=== PATIENT | male | born 1940 | race Caucasian/White ===

== ENCOUNTER 2020-06-24 12:09 | Day surgery (SDC) | payer OTHER ==
[2020-06-22 11:35] LABS: Absolute Lymphocytes (CBC) 1.7 K/uL (0.7-4.9); Basophils % 0.4 % (0-1.3); Lymphocytes % 24.4 % (15.3-44.8); MPV 7.2 fL (7.6-11.3); RBC Red Blood Cell Count 4.04 M/uL (4.33-5.43)
--- NOTE | 2020-06-22 11:40 | EKG ---
Test Date: 2020-06-22 Test Time: 09:42:01 Automotive Professional: TG MEASUREMENT RESULTS: Intervals: Rate: 64 AR: 184 QRSD: 132 QT: 418 QTc: 431 [place]: P: 25 AR: 184 QRS: 62 T: 66 INTERPRETIVE STATEMENTS: Sinus rhythm with occasional premature ventricular complexes and premature atrial complexes Indeterminate axis Right bundle branch block Abnormal ECG Compared to ECG 03/14/2017 14:58:14 Atrial premature complex(es) now present Ventricular premature complex(es) now present Indeterminate axis now present Sinus bradycardia no longer present Electronically Signed On 06-22-20 11:39:20 CDT by Simone Junior
--- NOTE | 2020-06-22 11:40 | RAD REPORT ---
EXAM DESCRIPTION: RAD - Chest Pa And Lat (2 Views) - 06/22/2020 11:08 am CLINICAL HISTORY: preop, pending heart catheterization COMPARISON: July 2015 TECHNIQUE: Frontal and lateral views of the chest were obtained. FINDINGS: The lungs are fibrotic with no peripheral mass consolidation. Diaphragm is flattened with increased retrosternal space. Heart size is normal and central vasculature is within normal limits. No pleural effusion or pneumothorax seen. No acute bony finding noted. No aortic abnormality. IMPRESSION: Prominent COPD changes are present not substantially different from 2016. No acute finding.
[2020-06-22 11:45] LABS: Protime INR 1.03
[2020-06-22 11:57] LABS: Potassium 4.2 mmol/L (3.5-5.1)
[2020-06-24] MEDS ORDERED: NA CHLORIDE 0.9% 500 ML ONE (12:34)
[2020-06-24] MEDS ORDERED: HEPA 1000U/500MLS 0 UNIT/0 ML BAG IV ONE (13:25)
[2020-06-24] MEDS ORDERED: HEPARIN 5000 UNIT/ML 1 ML VIAL ONE (13:25)
[2020-06-24] MEDS ORDERED: VERAPAMIL HCL 10 MG/4 ML VIAL IV ONE (13:26)
[2020-06-24] MEDS ORDERED: HEPARIN 10,000 UNIT/10 ML VIAL IV ONE (13:26)
[2020-06-24] MEDS ORDERED: FENTANYL CITR 100 MCG/2 ML ONE (13:26)
[2020-06-24] MEDS ORDERED: ATROPINE SULF 1 MG/10 ML SYR IV ONE (13:26)
[2020-06-24] MEDS ORDERED: MIDAZOLAM HCL 2 MG/2 ML INJ ONE (13:26)
[2020-06-24 15:03] VITALS: O2SAT 100
[2020-06-24 16:04] VITALS: BP 113/65
--- NOTE | 2020-06-24 22:58 | OP ---
Date of Procedure: 06/24/2020 Surgeon: JOCELYNE LANE Procedure Performed: Selective coronary angiogram. Indication: Chest pain with abnormal stress test. Access: Right radial artery 6-Micronesian closed with TR band. Complications: None. Bleeding: Less than 10 mL. Description Of Procedure: After risks, benefits, and alternatives were explained, the patient agreed to procedure and signed informed consent. The patient was brought into cardiac catheterization [facility], prepped and draped in usual sterile fashion. Then, we accessed radial artery using pediatric micropuncture kit and placed a 6-Micronesian slender sheath and took 5-Micronesian [place] 4.0 catheter into the aortic root, engaged left main and right coronary artery, took standard views and then removed the c atheter and sheath, and placed TR band with good hemostasis. Findings: 1.Left main, large and normal. 2.LAD, moderate size with mild luminal irregularity and mid segment myocardial bridge. 3.Left circumflex, large and normal. 4.RCA, dominant vessel and normal. Conclusion: Normal coronary arteries. Recommendations: Medical management if quit smoking. SR/MODL Voice ID: [id number] Report ID: [id number]
== END 2020-06-24 16:10 | disposition home or self-care (01) ==
LOC: CCL 12:09
PROVIDERS: ATTEND Internal Medicine
DX: R07.9 Chest pain, unspecified (principal); R42 Dizziness and giddiness; E03.9 Hypothyroidism, unspecified; F17.210 Nicotine dependence, cigarettes, uncomplicated; Z20.822 Contact with and (suspected) exposure to COVID-19
CPT/HCPCS: 93005; 85025; 80048; 36415; 85610; 85730; 71046; 93454; U0003; C1893; J1644; J2250; J3010; J7040

== ENCOUNTER 2021-06-27 12:35 | Emergency (ER) | payer OTHER ==
--- OUTSIDE RECORDS SUMMARY | 2021-06-27 12:41 | XMS REPORT | Continuity of Care Document ---
:1940 Author Organization [facility] t Address [address] [place] [address] Care Team Providers Name Role Phone Geno-Angelao_A_AH Attending Clinician Unavailable Geno-Mbayo_A_AH Admitting Clinician Unavailable Payers Payer Name Policy Type Policy Number Effective Date Expiration Date S angelique [facility] - [id number] 2019 [employer] 00:00:00 (MEDICARE REPLACEMENT/ADVANT AGE - HMO) Problems Condition Condition Condition Status Onset Resolution Last Treating Co mments Source Name Details Category Date Date Treatment Clinician Date 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 Social History Smoking Status Start Date Stop Date Source Light Tobacco Smoker [facility] Medications Ordered Filled Start Stop Current Ordering Indication Dosage Frequency Signature Comments Components Source Medication Medication Date Date Medication? Clinician (SIG) Name Name bupropion bupropion No 1 BID bupropion [facility] HCl 150 mg HCl 150 mg HCl 150 mg Family tablet,12 tablet,12 tablet,12 Practic hr hr hr e sustained-r sustained-r sustained- elease(smok elease(smok release(sm ing ing oking deterrent) deterrent) deterrent) Take 1 Take 1 Take 1 tablet tablet tablet twice a day twice a day twice a by oral by oral day by route. route. oral route. levothyroxi levothyroxi No 1capsul Q1D levothyrox [facility] ne 25 mcg ne 25 mcg e(s) ine 25 mcg Family capsule capsule capsule Practi c Take 1 Take 1 Take 1 e capsule capsule capsule every day every day every day by oral by oral by oral route. route. route. tamsulosin tamsulosin No 1capsul Q1D tamsulosin [place] 0.4 mg 0.4 mg e(s) 0.4 mg Family capsule capsule capsule Practi c Take 1 Take 1 Take 1 e capsule capsule capsule every day every day every day by oral by oral by oral route. route. route. Procedures This patient has no known procedures. Encounters Start End Encounter Admission Attending Care Care Encounter Source Date/Time Date/Time Type Type Clinicians Facility Department ID 2020-01-20 2020-01-20 Outpatient Geno-Mbayo [facility] [address] [place] [address] 11:59:00 11:59:00 _A_AH [id number] Family Practic e 2020-01-16 2020-01-16 Outpatient Geno-Mbayo [facility] [address] [place] [address] 06:40:00 06:40:00 _A_AH [id number] Family Practic e 2020-01-06 2020-01-06 [place] [facility] [place] - [id number] [place] 00:00:00 00:00:00 Geno-Mbay [facility] elkin beltran CORPORATE HEALTH CONSULTANT: Medical - Practi c [email or web address] [facility], [address] [address], [place] [address] , Ph. 2019-07-31 2019-07-31 Outpatient Geno-Mbayo [facility] [address] [place] [address] 05:27:00 05:27:00 _A_AH [id number] Family Practic e 2019-07-29 2019-07-29 Outpatient Geno-Mbayo [facility] [address] [place] [address] 12:54:00 12:54:00 _A_AH [id number] Family Practic e 2019-07-04 2019-07-04 Outpatient Geno-Mbayo [facility] [address] [place] [address] 02:30:00 02:30:00 _A_AH [id number] Family Practic e 2019-06-29 2019-06-29 Outpatient Geno-Mbayo [facility] [address] [place] [address] 12:15:00 12:15:00 _A_AH [id number] Family Practic e 2019-06-04 2019-06-04 Outpatient Geno-Arline [facility] [phone] [facility] 09:38:00 09:38:00 _A_ [id number] Family Practic e 2019-05-26 2019-05-26 Lyn [facility] [place] - [id number] [place] 00:00:00 00:00:00 [facility] elkin beltran CORPORATE HEALTH CONSULTANT: Medical - Practi c [email or web address] [facility], [place] [address], [place] [address] , Ph. 2019-03-26 2019-03-26 Outpatient Geno-Arline [facility] [id number] [facility] 07:12:00 07:12:00 _A_AH [id number] Family Practic e Results This patient has no known results.
--- NOTE | 2021-06-27 14:05 | EDPHYS ---
Physician Documentation [facility] Name: Arben Young Age: 80 yrs Sex: Male : 1940 Arrival Date: 06/27/2021 Time: 12:36 Bed Waiting Private MD: IRAJ MARTIN ED Physician Srinath Torres HPI: 06/27 13:15 This 80 yrs old Male presents to ER via Ambulatory with complaints of Diarrhea, ms3 Decreased Appetite. 13:15 The patient presents to the emergency department with diarrhea, that is intermittent. ms3 Onset: The symptoms/episode began/occurred 5 day(s) ago. Possible causes: bad food exposure. The symptoms are aggravated by nothing. The symptoms are alleviated by nothing. Associated signs and symptoms: Pertinent positives: diarrhea. Severity of symptoms: At their worst the symptoms were mild moderate in the emergency department the symptoms have improved. The patient has experienced similar episodes in the past, Food poisoning . Historical: - Allergies: 13:18 No Known Allergies; jd3 - Home Meds: 13:18 thyroid (pork) oral [Active]; Flomax Oral [Active]; jd3 - Immunization history:: Adult Immunizations up to date, Client reports having NOT received the Covid vaccine. - Social history:: Smoking status: Patient reports the use of cigarette tobacco products, smokes one pack cigarettes per day. ROS: 13:15 Constitutional: Negative for fever, and chills. Eyes: Negative for injury, pain, ms3 redness, and discharge, Neck: Negative for injury, pain, and swelling, Cardiovascular: Negative for chest pain, and palpitations. Respiratory: Negative for shortness of breath, cough, wheezing, and pleuritic chest pain, MS/Extremity: Negative for injury and deformity, Skin: Negative for injury, rash, and discoloration. 13:15 Abdomen/GI: Positive for diarrhea, Negative for abdominal pain, nausea and vomiting. Exam: 13:15 Constitutional: This is a well developed, well nourished patient who is awake, alert, ms3 and in no acute distress. Eyes: Pupils equal round and reactive to light, extra-ocular motions intact. Lids and lashes normal. Conjunctiva and sclera are non-icteric and not injected. Periorbital areas with no swelling, redness, or edema. Neck: Trachea midline, no cervical lymphadenopathy. Supple, full range of motion without nuchal rigidity, or vertebral point tenderness. No Meningismus. Chest/axilla: Normal chest wall appearance and motion. Nontender with no deformity. Cardiovascular: Regular rate and rhythm with a normal S1 and S2. No gallops, murmurs, or rubs. Normal PMI, no JVD. No pulse deficits. Respiratory: Lungs have equal breath sounds bilaterally, clear to auscultation and percussion. No rales, rhonchi or wheezes noted. No increased work of breathing, no retractions or nasal flaring. Abdomen/GI: Soft, non-tender, with normal bowel sounds. No distension or tympany. No guarding or rebound. No evidence of tenderness throughout. Skin: Warm, dry with normal turgor. Normal color with no rashes, no lesions, and no evidence of cellulitis. MS/ Extremity: Pulses equal, no cyanosis. Neurovascular intact. Full, normal range of motion. Psych: Awake, alert, with orientation to person, place and time. Behavior, mood, and affect are within normal limits. Vital Signs: 13:36 BP 120 / 77; Pulse 74; Resp 17 S; Temp 97.8(TE); Pulse Ox 97% on R/A; Weight 58.97 kg; jd3 Height 6 ft. 1 in. (185.42 cm); Pain 0/10; 13:36 Body Mass Index 17.15 (58.97 kg, 185.42 cm) jd3 MDM: 13:15 Differential diagnosis: Nonspecific abd pain, gastritis, Diarrhea vs Dehydration. ms3 14:04 Patient medically screened. ms3 22:01 Data reviewed: vital signs, nurses notes. Counseling: I had a detailed discussion with ms3 the patient and/or guardian regarding: the historical points, exam findings, and any diagnostic results supporting the discharge/admit diagnosis, to return to the emergency department if symptoms worsen or persist or if there are any questions or concerns that arise at home. ED course: Patient stated he did not wish to continue his treatment in the ED as his insurance is out of network. Discussed return precautions with patient to include worsening symptoms, or any other concerns.. Administered Medications: No medications were administered Disposition Summary: 06/27/21 14:04 Discharge Ordered Location: Home ms3 Problem: new ms3 Symptoms: are unchanged ms3 Condition: Stable ms3 Diagnosis - Diarrhea, unspecified ms3 Followup: ms3 - With: IRAJ MARTIN - When: 2 - 3 days - Reason: Discharge Instructions: - Discharge Summary Sheet ms3 - Diarrhea, Adult ms3 Forms: - Medication Reconciliation Form ms3 - Thank You Letter ms3 - Antibiotic Education ms3 - Prescription Opioid Use ms3 Signatures: Dispatcher [employer] Ward Webber RN RN Srinath Coker DO DO ms3 Corrections: (The following items were deleted from the chart) 13:04 13:03 Allergies: tetrabenazine; jd3 jd3 13:05 13:02 Social history: Smoking status: Patient/guardian denies using tobacco, but has a jd3 distant history of tobacco abuse, jd3 13:05 13:02 Immunization history: Adult Immunizations up to date, Client reports receiving jd3 the 2nd dose of the Covid vaccine, Flu vaccine is up to date. jd3 13:05 13:03 Allergies: Tetracyclines; jd3 jd3 13:05 13:03 PMHx: COPD; jd3 jd3 13:05 13:03 PMHx: Asthma; jd3 jd3 13:05 13:03 PSHx: tubal; jd3 jd3 13:05 13:03 PSHx: Tonsillectomy; jd3 jd3
--- NOTE | 2021-06-27 14:05 | ER ---
Nurse's Notes [facility] Name: Arben Young Age: 80 yrs Sex: Male : 1940 Arrival Date: 06/27/2021 Time: 12:36 Bed Waiting Private MD: IRAJ MARTIN Diagnosis: Diarrhea, unspecified Presentation: 06/27 13:17 Chief complaint: Spouse and/or significant other states: "he has been having non stop jd3 diarrhea since Sunday. we think he has food poisoning.". Coronavirus screen: At this time, the client does not indicate any symptoms associated with coronavirus-19. Ebola Screen: No symptoms or risks identified at this time. Initial Sepsis Screen: Does the patient meet any 2 criteria? No. Patient's initial sepsis screen is negative. Does the patient have a suspected source of infection? No. Patient's initial sepsis screen is negative. Risk Assessment: Do you want to hurt yourself or someone else? Patient reports no desire to harm self or others. Onset of symptoms was June 29, 2021. 13:17 Method Of Arrival: Ambulatory jd3 13:17 Acuity: CHAS 3 jd3 Triage Assessment: 14:09 General: Appears in no apparent distress. Behavior is calm, cooperative, appropriate jd3 for age. Pain: Denies pain. GI: Reports diarrhea. Historical: - Allergies: 13:18 No Known Allergies; jd3 - Home Meds: 13:18 thyroid (pork) oral [Active]; Flomax Oral [Active]; jd3 - Immunization history:: Adult Immunizations up to date, Client reports having NOT received the Covid vaccine. - Social history:: Smoking status: Patient reports the use of cigarette tobacco products, smokes one pack cigarettes per day. Screenin:09 Abuse screen: Denies threats or abuse. Nutritional screening: No deficits noted. jd3 Tuberculosis screening: No symptoms or risk factors identified. Fall Risk None identified. Assessment: 14:08 Reassessment: pt reporting to going to be going to [place] where his insurance is jd3 accepted. pt discharged from [facility]. even and steady gait. Vital Signs: 13:36 BP 120 / 77; Pulse 74; Resp 17 S; Temp 97.8(TE); Pulse Ox 97% on R/A; Weight 58.97 kg; jd3 Height 6 ft. 1 in. (185.42 cm); Pain 0/10; 13:36 Body Mass Index 17.15 (58.97 kg, 185.42 cm) jd3 ED Course: 12:36 Patient arrived in ED. am2 12:36 IRAJ MARTIN is Private Physician. am2 12:55 Srinath Torres DO is Attending Physician. ms3 13:02 Triage completed. jd3 13:37 Arm band placed on. jd3 14:04 IRAJ MARTIN is Referral Physician. ms3 14:08 Ward Schmidt RN is Primary Nurse. jd3 14:10 Patient has correct armband on for positive identification. Bed in low position. Call j light in reach. Adult w/ patient. Pulse ox on. NIBP on. 14:10 No provider procedures requiring assistance completed. Patient did not have IV access jd3 during this emergency room visit. Administered Medications: No medications were administered Medication: 14:09 VIS not applicable for this client. jd3 Outcome: 14:04 Discharge ordered by . ms3 14:09 Discharged to home ambulatory. jd3 14:09 Condition: stable 14:09 Discharge instructions given to patient, family, Instructed on discharge instructions, follow up and referral plans. Demonstrated understanding of instructions, follow-up care. 14:10 Patient left the ED. jd3 Signatures: Catherine Morejon am2 Ward Schmidt RN RN j Srinath Torres DO DO ms3 Corrections: (The following items were deleted from the chart) 13:04 13:03 Allergies: tetrabenazine; jd3 jd3 13:05 13:01 Chief complaint: Patient states: "I am having shortness of breath and not paying jd3 attention to my medications and I have been out of my inhaler." jd3 13:05 13:01 Coronavirus screen: At this time, the client does not indicate any symptoms jd3 associated with coronavirus-19. jd3 13:05 13:01 Ebola Screen: No symptoms or risks identified at this time. jd3 jd3 13:05 13:01 Initial Sepsis Screen: Does the patient meet any 2 criteria? No. Patient's jd3 initial sepsis screen is negative. Does the patient have a suspected source of infection? No. Patient's initial sepsis screen is negative. jd3 13:05 13:01 Risk Assessment: Do you want to hurt yourself or someone else? Patient reports no [facility] desire to harm self or others. [facility] 13:01 Onset of symptoms was June 27, 2021 [place] [address] 13:01 Method Of Arrival: Ambulatory [place] [address] 13:01 Acuity: CHAS 3 [place] [address] 13:02 Social history: Smoking status: Patient/guardian denies using tobacco, but has a [facility] distant history of tobacco abuse, [facility] 13:02 Immunization history: Adult Immunizations up to date, Client reports receiving [facility] the 2nd dose of the Covid vaccine, Flu vaccine is up to date. [facility] 13:03 Allergies: Tetracyclines; [place] [address] 13:03 PMHx: COPD; [place] [address] 13:03 PMHx: Asthma; [place] [address] 13:03 PSHx: tubal; [place] [address] 13:03 PSHx: Tonsillectomy; [place] [address] 13:06 13:04 Pulse 70bpm; Resp 17bpm; Spontaneous; Pulse Ox 97% RA; Temp 98.4F Temporal; jd3 122.47 kg Reported; Height 5 ft. 7 in. Reported; BMI: 42.2; Pain 8/10; [facility] 13 13:04 Arm band placed on [place] [address]
[2021-06-27 14:20] VITALS: BP 120/77; TEMP 97.8; O2SAT 97
== END 2021-06-27 14:10 | disposition home or self-care (01) ==
LOC: ER 12:35
DX: R19.7 Diarrhea, unspecified (principal); F17.210 Nicotine dependence, cigarettes, uncomplicated
CPT/HCPCS: 99283

== ENCOUNTER 2021-07-04 09:18 | Emergency (ER) | payer OTHER ==
--- OUTSIDE RECORDS SUMMARY | 2021-07-04 09:21 | XMS REPORT | Continuity of Care Document ---
:1940 Author Organization [facility] t Address [address] [place] [address] Care Team Providers Name Role Phone QUINN MARTIN Primary Care Physician Unavailable Bre MORGAN Attending Clinician Unavailable Bre Verduzco Attending Clinician Geno-Mbayo_A_AH Attending Clinician Unavailable Geno-Mbayo_A_AH Admitting Clinician Unavailable Payers Payer Name Policy Type Policy Number Effective Date Expiration Date Bre ZAVALETA [employer] [id number] 2021 MEDICARE HMO DSNP 00:00:00 [employer] [place] - [id number] 2019 [place] 00:00:00 (MEDICARE REPLACEMENT/ADVANT AGE - HMO) Problems Condition Condition Condition Status Onset Resolution Last Treating Co mments Source Name Details Category Date Date Treatment Clinician Date 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, Episodes, 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 2018-02 [facility] dism dism 03-01 Family 00:00: Practic 00 e 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 [place]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 hyperplasi Hyperplasi 00:00: Pr actic a a 00 e No known No known Disease Unive rs active active ity of problems problems [facility] Allergies, Adverse Reactions, Alerts Allergy Allergy Status Severity Reaction(s) Onset Inactive Treating Comm ents Source Name Type Date Date Clinician NO KNOWN Drug Active Univers ALLERGIE Class ity of S [facility] Social History Social Habit Start Date Stop Date Quantity Comments Source Exposure to 2021-06-19 2021-06-29 Not sure [facility] SARS-CoV-2 (event) 00:00:00 10:43:00 Medica l Branch Sex Ass[birth year] At [birth year] [facility] 00:00:00 00:00:00 Medical Branch Smoking Status Start Date Stop Date Source Light Tobacco Smoker [facility] Unknown if ever smoked [facility] Medications Ordered Filled Start Stop Current Ordering Indication Dosage Frequency Signature Comments Components Source Medication Medication Date Date Medication? Clinician (SIG) Name Name NaCl 0.9% No 1000mL at 999 Uni vers (NS) bolus -25 05-25 mL/hr, ity of infusion 17:15: 19:04 1,000 mL, Tacho as 1,000 mL 00 :00 IV Medical Infusion, Branch ONCE, 1 dose, On Sun06/29/21 at 1215, STAT No known No Univers medications -25 ity of 11:04: [place] 30 [facility] bupropion bupropion No 1 BID bupropion [facility] HCl 150 mg HCl 150 mg HCl 150 mg Family tablet,12 tablet,12 tablet,12 Practic hr hr hr e sustained-r sustained-r sustained- elease(smok elease(smok release(sm ing ing oking deterrent) deterrent) deterrent) Take 1 Take 1 Take 1 tablet tablet tablet twice a day twice a day twice a by oral by oral day by route. route. oral route. levothyroxi levothyroxi No 1capsul Q1D levothyrox [facility] ne 25 mcg ne 25 mcg e(s) ine 25 mcg Family capsule capsule capsule Practi c Take 1 Take 1 Take 1 e capsule capsule capsule every day every day every day by oral by oral by oral route. route. route. tamsulosin tamsulosin No 1capsul Q1D tamsulosin [facility] 0.4 mg 0.4 mg e(s) 0.4 mg Family capsule capsule capsule Practi c Take 1 Take 1 Take 1 e capsule capsule capsule every day every day every day by oral by oral by oral route. route. route. Vital Signs Vital Name Observation Time Observation Value Comments Source Systolic blood 2021-06-29 19:35:07 102 mm[Hg] Univer sity of pressure [facility] Diastolic blood 2021-06-29 19:35:07 66 mm[Hg] Unive rsity of pressure [facility] Heart rate 2021-06-29 19:35:07 84 /min [facility] Respiratory rate 2021-06-29 19:35:07 16 /min [facility] Oxygen saturation in 2021-06-29 19:35:07 98 /min [facility] Arterial blood by [facility] Pulse oximetry [place] Body temperature 2021-06-29 15:14:00 35.56 Natali [facility] Body height 2021-06-29 15:12:00 182.9 cm [facility] Body weight 2021-06-29 15:12:00 58.968 kg [facility] BMI 2021-06-29 15:12:00 17.63 kg/m2 [facility] Procedures Procedure Date / Time Performed Performing Clinician Perry e COMP. METABOLIC PANEL 2021-06-29 15:31:00 Valery Morgan [facility] ([id number]) [facility] CBC WITH DIFF 2021-06-29 15:31:00 Valery Morgan Maxwell o f [facility] NOTICE OF PRIVACY 2021-06-29 14:49:44 Doctor Unassigned, No [facility] PRACTICES Name [facility] Encounters Start End Encounter Admission Attending Care Care Encounter Source Date/Time Date/Time Type Type Clinicians Facility Department ID 2021-06-29 2021-06-29 Emergency X DIANA MORGAN ERT [id number] Univers 10:21:00 14:42:00 VALERY campoverde [facility] 2021-06-29 2021-06-29 Emergency DIANA Morgan [id number] Univers 10:21:00 14:42:00 Valery CORADO [id number] i ty [facility] [id number] [facility] [id number] [facility] 084 Branch 2020-01-20 2020-01-20 Outpatient Geno-Mbayo VFP VFP [id number] [facility] 11:59:00 11:59:00 _A_AH [id number] Family Practic e 2020-01-16 2020-01-16 Outpatient Geno-Mbayo VFP VFP [id number] [facility] 06:40:00 06:40:00 _A_AH 21101 Family Practic e 2020-01-06 2020-01-06 Lyn VFP [place] - [id number] [place] 00:00:00 00:00:00 Alex [facility] elkin beltran, FRAME STRIPPER: Medical - Practi c [email or web address] [address], [place] [address] , Ph. 2019-07-31 2019-07-31 Outpatient Geno-Mbayo VFP VFP [id number] [facility] 05:27:00 05:27:00 _A_AH 30550 Family Practic e 2019-07-29 2019-07-29 Outpatient Geno-Mbayo VFP VFP [id number] [facility] 12:54:00 12:54:00 _A_AH 79020 Family Practic e 2019-07-04 2019-07-04 Outpatient Geno-Mbayo VFP VFP [id number] [facility] 02:30:00 02:30:00 _A_AH 32701 Family Practic e 2019-06-29 2019-06-29 Outpatient Geno-Mbayo VFP VFP [id number] [facility] 12:15:00 12:15:00 _A_AH 51995 Family Practic e 2019-06-04 2019-06-04 Outpatient Geno-Mbayo VFP VFP [id number] [facility] 09:38:00 09:38:00 _A_AH 63143 Family Practic e 2019-05-26 2019-05-26 Lyn VFP [place] - [id number] [place] 00:00:00 00:00:00 Alex [facility] elkin ruby, FRAME STRIPPER: Medical - Practi c [email or web address] [address], [place] [address] , Ph. 2019-03-26 2019-03-26 Outpatient Geno-Mbayo VFP VFP [id number] [facility] 07:12:00 07:12:00 _A_AH 03578 Family Practic e Results Test Description Test Time Test Comments Results Result Comments Source COMP. METABOLIC PANEL (59044) 2021-06-29 16:15:23 Test Item Value Reference Range Interpretation Comme nts NA (test code = 3278922009) 137 mmol/L 135-145 K (test code = 3745998067) 4.6 mmol/L 3.5-5.0 CL (test code = 5927632081) 101 mmol/L 98-108 CO2 TOTAL (test code = 25 mmol/L 23-31 8493472575) AGAP (test code = 2720047953) 2-16 BUN (test code = 1018079074) 22 mg/dL 7-23 GLUCOSE (test code = 0651296984) 107 mg/dL 70-110 CREATININE (test code = 0.89 mg/dL 0.60-1.25 3018492537) TOTAL BILI (test code = 0.5 mg/dL 0.1-1.0 5402967781) CALCIUM (test code = 7107167416) 10.4 mg/dL 8.6-10.6 T PROTEIN (test code = 7.5 g/dL 6.3-8.2 3475126550) ALBUMIN (test code = 0103059677) 4.5 g/dL 3.5-5.0 ALK PHOS (test code = 5102411171) 71 U/L 34-122 ALTv (test code = 1742-6) 20 U/L 5-50 AST(SGOT) (test code = 34 U/L 13-40 5880461707) eGFR (test code = 9734197852) mL/min/1.73m2 DENISE (test code = DENISE) Association of Glomerular Filtration Rate (GFR) and Staging of Kidney Disease* + +--------- + ----+| GFR (mL/min/1.73 m2) ?| With Kidney Damage ?| ?Without Kidney Damage+ +--- + +| ?>90 ?| ?Stage one ?| ? Normal ?+ +-------- + -----+| ?60-89 ?| ?Stage two ?| ? Decreased GFR ? + +--------- + ----+| ?30-59 ?| ?Stage three ?| ? Stage three ? + +--------- + ----+| ?15-29 ?| ?Stage four ? | ? Stage four ?+ +-------- + -----+| ?<15 (or dialysis) ? ?| ?Stage five ? | ? Stage five ?+ +-------- + -----+ *Each stage assumes the associated GFR level has been in effect for at least three months. ?Stages 1 to 5, with or without kidney disease, indicate chronic kidney disease. Notes: Determination of stages one and two (with eGFR >59mL/min/1.73 m2) requires estimation of kidney damage for at least three months as defined by structural or functional abnormalities of the kidney, manifested by either:Pathological abnormalities or Markers of kidney damage (including abnormalities in the composition of the blood or urine or abnormalities in imaging tests). [facility] WITH [id number] 16:02:18 Test Item Value Reference Range Interpretation Comments WBC (test code = See_Comment H [Automated 5390-2) message] The system which generated this result transmit precious reference range : 4.20 - 10.70 10*3/?L. The reference range was not used to interpret this result as normal/abnormal . RBC (test code = See_Comment [Automated 789-8) message] The system which generated this result transmit precious reference range : 4.26 - 5.52 10*6/?L. The reference range was not used to interpret this result as normal/abnormal . HGB (test code = 15.0 g/dL 12.2-16.4 718-7) HCT (test code = 43.1 % 38.4-49.3 4544-3) MCV (test code = 95.8 fL 81.7-95.6 H 787-2) MCH (test code = 33.3 pg 26.1-32.7 H 785-6) MCHC (test code = 34.8 g/dL 31.2-35.0 786-4) RDW-SD (test code = 50.6 fL 38.5-51.6 52111-2) RDW-CV (test code = 14.5 % 12.1-15.4 788-0) PLT (test code = See_Comment [Automated 777-3) message] The system which generated this result transmit precious reference range : 150 - 328 10*3/ ?L. The reference range was not u sed to interpret th is result as normal/abnormal . MPV (test code = 9.3 fL 9.8-13.0 L 82122-3) NRBC/100 WBC (test See_Comment [Automat ed code = 7596239082) message] The system which generated this result transmit precious reference range : 0.0 - 10.0 /100 WBCs. The reference range was not used to interpret this result as normal/abnormal . NRBC x10^3 (test code <0.01 See_Comment [Auto mated = 0825616140) message] The system which generated this result transmit precious reference range : 10*3/?L. The reference range was not used to interpret this result as normal/abnormal . GRAN MAT (NEUT) % 82.5 % (test code = 770-8) IMM GRAN % (test code 0.90 % = 0593298519) LYMPH % (test code = 9.0 % 736-9) MONO % (test code = 7.1 % 5905-5) EOS % (test code = 0.1 % 713-8) BASO % (test code = 0.4 % 706-2) GRAN MAT x10^3(ANC) 10.32 10*3/uL 1.99-6.95 H (test code = 8436240093) IMM GRAN x10^3 (test 0.11 10*3/uL 0.00-0.06 H code = 9171329142) LYMPH x10^3 (test code 1.12 10*3/uL 1.09-3.23 = 731-0) MONO x10^3 (test code 0.89 10*3/uL 0.36-1.02 = 742-7) EOS x10^3 (test code = <0.03 0.06-0.53 L 711-2) BASO x10^3 (test code 0.05 10*3/uL 0.01-0.09 = 704-7) Lab Interpretation Abnormal (test code = 49792-9) [facility]"
[2021-07-04 10:07] LABS: Absolute Lymphocytes (CBC) 1.6 K/uL (0.7-4.9); Hematocrit 46.1 % (39.6-49.0); MPV 7.7 fL (7.6-11.3); RBC Red Blood Cell Count 4.72 M/uL (4.33-5.43)
[2021-07-04] MEDS ORDERED: NA CHLORIDE 0.9% 1,000 ML ONE (10:07)
[2021-07-04 10:09] LABS: Protime INR 1.03
[2021-07-04 10:27] LABS: Albumin 3.7 g/dL (3.4-5.0); Bilirubin Direct 0.2 mg/dL (0-0.2); Bilirubin Total 0.5 mg/dL (0.2-1.0); Potassium 3.1 mmol/L (3.5-5.1); Protein, Total 7.6 g/dL (6.4-8.2); Troponin High Sensitivity 10.4 pg/mL (<58.9)
--- NOTE | 2021-07-04 11:10 | RAD REPORT ---
EXAM DESCRIPTION: Jason Single View07/04/2021 10:28 am CLINICAL HISTORY: Abdominal pain COMPARISON: 2020 FINDINGS: Lungs are hyperaerated. The lungs appear clear of acute infiltrate. The heart is normal size IMPRESSION: No acute abnormalities displayed
--- NOTE | 2021-07-04 11:10 | RAD REPORT ---
EXAM DESCRIPTION: CT - Abdomen Pelvis W Contrast - 07/04/2021 10:48 am CLINICAL HISTORY: Abdominal pain/diarrhea COMPARISON: 2013 TECHNIQUE: Computed axial tomography of the abdomen pelvis was obtained. 100 cc Isovue-300 was admin istered intravenously. Oral contrast was not requested which limits evaluation of bowel and appendix All CT scans are performed using dose optimization technique as appropriate and may include automated exposure control or mA/KV adjustment according to patient size. FINDINGS: The liver, spleen, pancreas, left adrenal and kidneys appear unremarkable. Small right adrenal adenoma There is no evidence of diverticulitis. Fluid within nondilated large and small bowel Mild gallbladder distention Spondylosis lumbar spine IMPRESSION: Fluid within nondilated large and small bowel may indicate an enteritis Mild gallbladder distention
[2021-07-04] MEDS ORDERED: POTASSIUM 25 MEQ EFFERV TAB ONE (13:34)
[2021-07-04] MEDS ORDERED: metroNIDAZOLE 500 MG TABLET ONE (13:34)
--- NOTE | 2021-07-04 15:59 | ER ---
Nurse's Notes [facility] Name: Arben Young Age: 80 yrs Sex: Male : 1940 Arrival Date: 07/04/2021 Time: 09:21 Bed 20 Private MD: IRAJ MARTIN Diagnosis: Diarrhea, unspecified;Hypokalemia Presentation: 07/04 09:24 Chief complaint: Patient states: that approx 12 days ago he had what he believed to be ap3 food poisoning. However, patient states he has had continued diarrhea since then, as well as a weight loss of approx 15lbs in the last 12 days. Patient states he has not had an appetite and has not been able to tolerate food or fluids. Patient denies pain at this time. Patient also reports having started Cipro, and this morning he had his 3 doses. Coronavirus screen: diarrhea, Client presents with at least one sign or symptom that may indicate coronavirus-19. Ebola Screen: No symptoms or risks identified at this time. Initial Sepsis Screen: Does the patient meet any 2 criteria? No. Patient's initial sepsis screen is negative. Does the patient have a suspected source of infection? No. Patient's initial sepsis screen is negative. Risk Assessment: Do you want to hurt yourself or someone else? Patient reports no desire to harm self or others. Onset of symptoms was June 22, 2021. 09:24 Method Of Arrival: Ambulatory ap3 09:24 Acuity: CHAS 3 ap3 Triage Assessment: 09:29 General: Appears in no apparent distress. Behavior is calm, cooperative, Reports ap3 fatigue for. Pain: Denies pain. Neuro: Level of Consciousness is awake, alert, obeys commands, Gait is steady, Reports weakness. Cardiovascular: Patient's skin is warm and dry. Respiratory: Airway is patent Respiratory effort is even, unlabored. GI: Reports diarrhea. Historical: - Allergies: 09:28 No Known Allergies; ap3 - PMHx: :28 None; ap3 - Immunization history:: Client reports having NOT received the Covid vaccine. Flu vaccine is not up to date. - Social history:: Smoking status: Patient reports the use of cigarette tobacco products, smokes one pack cigarettes per day. Screenin:30 Abuse screen: Denies threats or abuse. Nutritional screening: Had unintentional weight ap3 loss of 10 pounds or more. Tuberculosis screening: No symptoms or risk factors identified. 09:32 Fall Risk IV access (20 points). Total Rico Fall Scale indicates No Risk (0-24 pts). ll1 Assessment: 09:40 General: Appears uncomfortable, ill, Behavior is calm, cooperative, appropriate for ll1 age. Pain: Denies pain. Neuro: No deficits noted. Cardiovascular: No deficits noted. Respiratory: No deficits noted. GI: Abdomen is flat, Bowel sounds present X 4 quads. Abd is soft and non tender X 4 quads. Reports diarrhea, intolerance of fluids, intolerance of food. Musculoskeletal: Reports generalized weakness. 10:34 Reassessment: No changes from previously documented assessment. Patient and/or family ll1 updated on plan of care and expected duration. Pain level reassessed. Patient is alert, oriented x 3, equal unlabored respirations, skin warm/dry/pink. 11:30 Reassessment: No changes from previously documented assessment. Patient and/or family ll1 updated on plan of care and expected duration. Pain level reassessed. Patient is alert, oriented x 3, equal unlabored respirations, skin warm/dry/pink. 12:30 Reassessment: No changes from previously documented assessment. Patient and/or family ll1 updated on plan of care and expected duration. Pain level reassessed. Patient is alert, oriented x 3, equal unlabored respirations, skin warm/dry/pink. 13:30 Reassessment: No changes from previously documented assessment. Patient and/or family ll1 updated on plan of care and expected duration. Pain level reassessed. Patient is alert, oriented x 3, equal unlabored respirations, skin warm/dry/pink. 14:30 Reassessment: No changes from previously documented assessment. Patient and/or family ll1 updated on plan of care and expected duration. Pain level reassessed. Patient is alert, oriented x 3, equal unlabored respirations, skin warm/dry/pink. 15:30 Reassessment: No changes from previously documented assessment. Patient and/or family ll1 updated on plan of care and expected duration. Pain level reassessed. Patient is alert, oriented x 3, equal unlabored respirations, skin warm/dry/pink. 16:20 Reassessment: No changes from previously documented assessment. Patient and/or family ll1 updated on plan of care and expected duration. Pain level reassessed. Patient is alert, oriented x 3, equal unlabored respirations, skin warm/dry/pink. Vital Signs: 09:24 BP 119 / 77; Pulse 85; Resp 17; Temp 98.9(T); Pulse Ox 99% on R/A; Weight 51.26 kg; ap3 Height 6 ft. (182.88 cm); 09:40 BP 115 / 66 Supine; Pulse 64; ll1 09:42 BP 115 / 67 Sitting; Pulse 77; ll1 09:44 BP 97 / 75 Standing; Pulse 89; ll1 10:34 BP 124 / 66; Pulse 64; Resp 16; Pulse Ox 98% on R/A; ll1 14:32 BP 123 / 63; Pulse 65; Resp 16; Pulse Ox 99% ; ll1 16:15 BP 106 / 56; Pulse 55; Resp 17; Pulse Ox 98% on R/A; ll1 09:24 Body Mass Index 15.33 (51.26 kg, 182.88 cm) ap3 ED Course: 09:21 Patient arrived in ED. mr 09:22 IRAJ MARTIN is Private Physician. mr 09:24 Jitendra Adams [facility]. cp 09:24 Srinath Torres DO is Attending Physician. cp 09:28 Triage completed. ap3 09:31 Nurse Practitioner and/or Physician Traffic Coordinator to see patient. ap3 09:31 Arm band placed on left wrist. ap3 09:32 Terry Rome, CONNIE is Primary Nurse. ll1 09:32 Patient placed in an exam room, on a stretcher. ll1 09:32 Patient has correct armband on for positive identification. Bed in low position. Call ll1 light in reach. Side rails up X 1. Pulse ox on. NIBP on. 09:48 Missed attempt(s): 22 gauge in right forearm. Bleeding controlled, band aid applied, ll1 catheter tip intact. 09:50 Inserted saline lock: 22 gauge in right antecubital area, using aseptic technique. ll1 Blood collected. 10:30 XRAY Chest (1 view) In Process Unspecified. EDMS 10:48 CT Abd/Pelvis - IV Contrast Only In Process Unspecified. EDMS 14:35 Stool Culture Sent. ll1 14:35 Rotavirus Antigen Sent. ll1 14:35 Ova And Parasites Sent. ll1 14:35 Occult Blood Sent. ll1 14:35 CDIFF Sent. ll1 15:57 IRAJ MARTIN is Referral Physician. cp 15:57 Jc Valentin MD is Referral Physician. cp 15:58 Referral Physician role handed off by IRAJ MARTNI cp 15:58 Terrell Mirza MD is Referral Physician. cp 16:21 No provider procedures requiring assistance completed. IV discontinued, intact, ll1 bleeding controlled, No redness/swelling at site. Pressure dressing applied. Administered Medications: 10:14 Drug: NS 0.9% 1000 ml Route: IV; Rate: 1000 calculated rate; Site: right antecubital; ll1 16:42 Follow up: Response: No adverse reaction; IV Status: Completed infusion; IV Intake: ll1 700ml 13:34 Drug: Potassium Effervescent Tablet 50 mEq Route: PO; ll1 14:31 Follow up: Response: No adverse reaction ll1 13:34 Drug: Flagyl (metroNIDAZOLE) 500 mg Route: PO; ll1 14:32 Follow up: Response: No adverse reaction ll1 Medication: 09:31 VIS not applicable for this client. ap3 Intake: 16:42 IV: 700ml; Total: 700ml. ll1 Outcome: 15:58 Discharge ordered by . cp 16:23 Patient left the ED. ll1 16:23 Discharged to home via wheelchair. ll1 16:23 Condition: stable 16:23 Discharge instructions given to patient, Instructed on discharge instructions, follow up and referral plans. medication usage, Demonstrated understanding of instructions, follow-up care, medications, Prescriptions given X 3. Signatures: Dispatcher [employer] EDWV Denis Nicole mr Jitendra Adams PA PA cp Catherine Portillo RN RN ap3 Terry Rome RN RN ll1
--- NOTE | 2021-07-04 15:59 | EDPHYS ---
Physician Documentation [facility] Name: Arben Young Age: 80 yrs Sex: Male : 1940 Arrival Date: 07/04/2021 Time: 09:21 Bed 20 Private MD: IRAJ MARTIN ED Physician Srinath Torres HPI: 07/04 09:35 This 80 yrs old Male presents to ER via Ambulatory with complaints of cp Vomiting/Diarrhea, Weight Loss. 09:35 The patient presents to the emergency department with diarrhea, that is continuous. cp Onset: The symptoms/episode began/occurred 3 week(s) ago. 09:35 Possible causes: unknown. Associated signs and symptoms: Pertinent negatives: cp constipation, fever, GI bleeding, vomiting. Severity of symptoms: in the emergency department the symptoms are unchanged despite home interventions. Patient reports he is currently taking prescribed Cipro and weight loss of 20 plus pounds over past several weeks. Historical: - Allergies: 09:28 No Known Allergies; ap3 - PMHx: 09:28 None; ap3 - Immunization history:: Client reports having NOT received the Covid vaccine. Flu vaccine is not up to date. - Social history:: Smoking status: Patient reports the use of cigarette tobacco products, smokes one pack cigarettes per day. ROS: 09:40 Constitutional: Positive for poor PO intake, weight loss, Negative for body aches, cp chills, fever. 09:40 Abdomen/GI: Positive for abdominal pain, nausea, diarrhea, Negative for vomiting, cp constipation, black/tarry stool, rectal bleeding. 09:40 Eyes: Negative for injury, pain, redness, and discharge. cp 09:40 ENT: Negative for drainage from ear(s), ear pain, sore throat, difficulty swallowing, difficulty handling secretions. 09:40 Cardiovascular: Negative for chest pain, edema, palpitations. 09:40 Respiratory: Negative for cough, shortness of breath, wheezing. 09:40 Back: Negative for pain at rest, pain with movement. 09:40 : Negative for urinary symptoms, testicular pain 09:40 Skin: Negative for cellulitis, rash. 09:40 Neuro: Positive for weakness, Negative for altered mental status, dizziness, headache, syncope. 09:40 All other systems are negative. Exam: 09:45 Constitutional: The patient appears in no acute distress, alert, awake, cp non-diaphoretic, non-toxic, well developed, well nourished. 09:45 Head/Face: Normocephalic, atraumatic. cp 09:45 Eyes: Periorbital structures: appear normal, Pupils: equal, round, and reactive to light and accomodation, Extraocular movements: intact throughout, Conjunctiva: normal, no exudate, no injection, Sclera: no appreciated abnormality, Lids and lashes: appear normal, bilaterally. 09:45 ENT: External ear(s): are unremarkable, Nose: is normal, Mouth: Lips: moist, Oral mucosa: pink and intact, moist, Posterior pharynx: Airway: no evidence of obstruction, patent, Tonsils: are normal in appearance, swelling, is not appreciated, erythema, is not appreciated, exudate, is not appreciated. 09:45 Neck: ROM/movement: is normal, is supple, without pain, no range of motions limitations, no meningismus, no nuchal rigidity. 09:45 Chest/axilla: Inspection: normal, Palpation: is normal, no crepitus, no tenderness. 09:45 Cardiovascular: Rate: normal, Rhythm: regular, Edema: is not appreciated, JVD: is not appreciated. 09:45 Respiratory: the patient does not display signs of respiratory distress, Respirations: normal, no use of accessory muscles, no retractions, labored breathing, is not present, Breath sounds: are clear throughout, no decreased breath sounds, no stridor, no wheezing. 09:45 Abdomen/GI: Inspection: abdomen appears normal, Bowel sounds: active, all quadrants, Palpation: abdomen is soft and non-tender, in all quadrants, rebound tenderness, is not appreciated, voluntary guarding, is not appreciated, involuntary guarding, is not appreciated. 09:45 Back: pain, is absent, ROM is normal. 09:45 Skin: cellulitis, is not appreciated, no rash present. 09:45 Neuro: Orientation: to person, place \T\ time. Mentation: is normal, Motor: moves all fours, strength is normal, Sensation: is normal. 10:05 ECG was reviewed by the Attending Physician. cp Vital Signs: 09:24 BP 119 / 77; Pulse 85; Resp 17; Temp 98.9(T); Pulse Ox 99% on R/A; Weight 51.26 kg; ap3 Height 6 ft. (182.88 cm); 09:40 BP 115 / 66 Supine; Pulse 64; ll1 09:42 BP 115 / 67 Sitting; Pulse 77; ll1 09:44 BP 97 / 75 Standing; Pulse 89; ll1 10:34 BP 124 / 66; Pulse 64; Resp 16; Pulse Ox 98% on R/A; ll1 14:32 BP 123 / 63; Pulse 65; Resp 16; Pulse Ox 99% ; ll1 16:15 BP 106 / 56; Pulse 55; Resp 17; Pulse Ox 98% on R/A; ll1 09:24 Body Mass Index 15.33 (51.26 kg, 182.88 cm) ap3 MDM: 09:33 Patient medically screened. 13:45 Data reviewed: vital signs, nurses notes, lab test result(s), EKG, radiologic studies, cp CT scan, plain films. 13:45 Physician consultation: Jc Valentin MD was called at 13:35, was contacted at 13:35, regarding consult, patient's condition, and will see patient in office, to f/u for CT results showing mild gallbladder distension. wants Cipro stopped and patient to start oral Levaquin and metronidazole. 15:58 Test interpretation: by ED physician or midlevel provider: ECG, plain radiologic cp studies. 15:58 Differential diagnosis: gastritis, cholecystitis, pancreatitis, diverticulitis, viral cp gastroenteritis, gastroenteritis. Counseling: I had a detailed discussion with the patient and/or guardian regarding: the historical points, exam findings, and any diagnostic results supporting the discharge/admit diagnosis, lab results, the need for outpatient follow up, a family practitioner, a general surgeon, to return to the emergency department if symptoms worsen or persist or if there are any questions or concerns that arise at home. Response to treatment: the patient's symptoms have mildly improved after treatment, and as a result, I will discharge patient. ED course: VSS. Patient appears non-toxic and tolerating po fluids. Will discharge to home for continued monitoring. 07/04 09:52 Order name: Basic Metabolic Panel; Complete Time: 10:49 cp 07/04 10:49 Interpretation: Normal except: K 3.1; CO2 19; GFR 65. cp 07/04 09:52 Order name: CBC with Diff; Complete Time: 10:24 cp 05/30 10:25 Interpretation: Normal except: WBC 13.1; ALBER% 81.1; LYM% 12.0; NEUT A 10.6. cp 07/04 09:52 Order name: LFT's; Complete Time: 10:49 cp /30 10:49 Interpretation: Normal except: GLOB 3.9; A/G 0.9. cp 07/04 09:52 Order name: Magnesium; Complete Time: 10:49 cp 07/04 09:52 Order name: NT PRO-BNP; Complete Time: 10:49 cp 07/04 09:52 Order name: PT-INR; Complete Time: 10:24 cp 07/04 09:52 Order name: Troponin HS; Complete Time: 10:49 cp 07/04 09:52 Order name: Lactate; Complete Time: 10:49 cp 07/04 09:52 Order name: Lipase; Complete Time: 10:49 cp 07/04 09:52 Order name: Occult Blood; Complete Time: 15:14 cp 07/04 15:14 Interpretation: Reviewed. cp 07/04 09:52 Order name: Ova And Parasites cp 07/04 09:52 Order name: Rotavirus Antigen; Complete Time: 15:14 cp 07/04 15:14 Interpretation: Reviewed. cp 07/04 09:52 Order name: Stool Culture cp 07/04 09:33 Order name: Orthostatics; Complete Time: 09:54 cp 07/04 09:52 Order name: XRAY Chest (1 view); Complete Time: 11:19 cp 07/04 11:19 Interpretation: Report review. cp 07/04 09:52 Order name: EKG; Complete Time: 09:53 cp 07/04 09:52 Order name: Cardiac monitoring; Complete Time: 10:14 cp 07/04 09:52 Order name: EKG - Nurse/Tech; Complete Time: 10:14 cp 07/04 09:52 Order name: IV Saline Lock; Complete Time: 09:54 cp 07/04 09:52 Order name: Labs collected and sent; Complete Time: 09:54 cp 07/04 09:52 Order name: O2 Per Protocol; Complete Time: 09:54 cp 07/04 09:52 Order name: O2 Sat Monitoring; Complete Time: 09:54 cp 07/04 09:52 Order name: CT Abd/Pelvis - IV Contrast Only; Complete Time: 11:19 cp 07/04 13:19 Interpretation: Report reviewed. cp 07/04 09:52 Order name: CDIFF cp 07/04 11:21 Order name: NPO; Complete Time: 11:36 cp 07/04 13:45 Order name: PO challenge; Complete Time: 14:32 cp EC:05 Rate is 65 beats/min. Rhythm is regular. MO interval is normal. QRS interval is cp prolonged at 144 msec. QT interval is normal. T waves are Inverted in lead aVL. Interpreted by me. Reviewed by me. Administered Medications: 10:14 Drug: NS 0.9% 1000 ml Route: IV; Rate: 1000 calculated rate; Site: right antecubital; ll1 16:42 Follow up: Response: No adverse reaction; IV Status: Completed infusion; IV Intake: ll1 700ml 13:34 Drug: Potassium Effervescent Tablet 50 mEq Route: PO; ll1 14:31 Follow up: Response: No adverse reaction ll1 13:34 Drug: Flagyl (metroNIDAZOLE) 500 mg Route: PO; ll1 14:32 Follow up: Response: No adverse reaction ll1 Disposition: 17:36 Co-signature as Attending Physician, Srinath ENGLISH was immediately available on-site ms3 in the Emergency Department for consultation in the care of the patient.. Disposition Summary: 07/04/21 15:58 Discharge Ordered Location: Home cp Condition: Stable cp Diagnosis - Diarrhea, unspecified cp - Hypokalemia cp Followup: cp - With: IRAJ MARTIN - When: 2 - 3 days - Reason: Recheck today's complaints Followup: cp - With: Jc Valentin MD - When: 1 - 2 days - Reason: Recheck today's complaints Followup: cp - With: Terrell Mirza MD - When: 1 - 2 days - Reason: Recheck today's complaints Discharge Instructions: - Discharge Summary Sheet cp - Diarrhea, Adult cp - Hypokalemia cp Forms: - Medication Reconciliation Form cp - Thank You Letter cp - Antibiotic Education cp - Prescription Opioid Use cp Prescriptions: - Zofran 4 mg Oral Tablet - take 1 tablet by ORAL route every 12 hours As needed; 20 tablet; Refills: 0, cp Product Selection Permitted - Metronidazole 500 mg Oral Tablet - take 1 tablet by ORAL route every 8 hours; 30 tablet; Refills: 0, Product cp Selection Permitted - levofloxacin 500 mg Oral Tablet - take 1 tablet by ORAL route once daily for 10 days; 10 tablet; Refills: 0, cp Product Selection Permitted Signatures: Dispatcher [employer] Jitendra Lraios PA PA cp Prokisch, Amanda, RN RN ap3 Terry Rome RN RN ll1 Srinath Torres DO DO ms3
[2021-07-04 16:31] VITALS: TEMP 98.9
[2021-07-04 16:37] VITALS: BP 123/63; O2SAT 99
[2021-07-05 12:12] LABS: C.diff Antigen/Toxin Ag neg : Tox neg (NEG : NEG)
--- NOTE | 2021-07-06 07:55 | EKG ---
Test Date: 2021-07-04 Test Time: 09:59:40 Acoustic Warfare Analyst: DARYN MEASUREMENT RESULTS: Intervals: Rate: 65 NV: 180 QRSD: 144 QT: 424 QTc: 440 [place]: P: 36 NV: 180 QRS: 50 T: 94 INTERPRETIVE STATEMENTS: Normal sinus rhythm Indeterminate axis Nonspecific intraventricular block Abnormal ECG Compared to ECG 06/22/2020 09:42:01 Atrial premature complex(es) no longer present Ventricular premature complex(es) no longer present Right bundle-branch block no longer present Electronically Signed On 07-06-21 07:50:46 CDT by Simone Junior
== END 2021-07-04 16:23 | disposition home or self-care (01) ==
LOC: ER 09:18
DX: E87.6 Hypokalemia (principal); R11.2 Nausea with vomiting, unspecified; R63.4 Abnormal weight loss; F17.210 Nicotine dependence, cigarettes, uncomplicated
CPT/HCPCS: 96361; 93005; 87045; 85025; 80048; 36415; 83735; 87177; 82274; 85610; 80076; 87046; 83605; 87209; 87324; 84484; 83690; 83880; 87449; 87425; 74177; 71045; 96360; 99284; Q9967; J7030

== ENCOUNTER 2021-07-07 18:39 | Inpatient (IN) | payer OTHER ==
--- OUTSIDE RECORDS SUMMARY | 2021-07-07 18:42 | XMS REPORT | Continuity of Care Document ---
:1940 Author Organization [facility] t Address [address] [place] [address] Care Team Providers Name Role Phone QUINN MARTIN Primary Care Physician Unavailable Bre MORGAN Attending Clinician Unavailable Bre Verduzco Attending Clinician Geno-Mbayo_A_AH Attending Clinician Unavailable Geno-Mbayo_A_AH Admitting Clinician Unavailable Payers Payer Name Policy Type Policy Number Effective Date Expiration Date Bre [employer] [id number] 2021 MEDICARE HMO DSNP 00:00:00 [employer] [place] - [id number] 2019 [employer] 00:00:00 (MEDICARE REPLACEMENT/ADVANT AGE - [...] rs active active ity of problems problems [facility] Allergies, Adverse Reactions, Alerts Allergy Allergy Status Severity Reaction(s) Onset Inactive Treating Comm ents Source Name Type Date Date Clinician NO KNOWN Drug Active Univers ALLERGIE Class ity of S [facility] Social History Social Habit Start Date Stop Date Quantity Comments Source Exposure to 2021-06-19 2021-06-[address] [facility] SARS-CoV-2 (event) 00:00:00 10:43:00 Medica l Branch Sex Assigned At [birth year] [facility] 00:00:00 00:00:00 Medical Branch Smoking Status Start Date Stop Date Source Light Tobacco Smoker [facility] Unknown if ever smoked [facility] Medications Ordered Filled Start Stop Current Ordering [...] No Univers medications -25 ity of 11:04: [place] 30 [facility] bupropion bupropion No 1 BID bupropion [facility] HCl 150 mg HCl 150 mg [...] route. levothyroxi levothyroxi No 1capsul Q1D levothyrox [facility] ne 25 mcg ne 25 mcg e(s) ine 25 mcg Family capsule capsule capsule Practi c Take 1 Take 1 Take 1 e capsule capsule capsule every day every day every day by oral by oral by oral route. route. route. tamsulosin tamsulosin No 1capsul Q1D tamsulosin [facility] 0.4 mg 0.4 mg e(s) 0.4 mg Family capsule capsule capsule Practi c Take 1 Take 1 Take 1 e capsule capsule capsule every day every day every day by oral by oral by oral route. route. route. Vital Signs Vital Name Observation Time Observation Value Comments Source Systolic blood 2021-06-29 19:35:07 102 mm[Hg] Univer sity of pressure [facility] Diastolic blood 2021-06-29 19:35:07 66 mm[Hg] Unive rsity of pressure [facility] Heart rate 2021-06-29 19:35:07 84 /min [facility] Respiratory rate 2021-06-29 19:35:07 16 /min [facility] Oxygen saturation in 2021-06-29 19:35:07 98 /min [facility] Arterial blood by [facility] Pulse oximetry [place] Body temperature 2021-06-29 15:14:00 35.56 Natali [facility] Body height 2021-06-29 15:12:00 182.9 cm [facility] Body weight 2021-06-29 15:12:00 58.968 kg [facility] BMI 2021-06-29 15:12:00 17.63 kg/m2 [facility] Procedures Procedure Date / Time Performed Performing Clinician Perry e COMP. METABOLIC PANEL 2021-06-29 15:31:00 Valery Morgan [facility] ([id number]) [facility] CBC WITH DIFF 2021-06-29 15:31:00 Valery Morgan [place] [facility] NOTICE OF PRIVACY 2021-06-29 14:49:44 Doctor Unassigned, No [facility] PRACTICES Name [facility] Encounters Start End Encounter Admission Attending Care Care Encounter Source Date/Time Date/Time Type Type Clinicians Facility Department ID 2021-06-29 2021-06-29 Emergency X DIANA MORGAN ERT [id number] [facility] 10:21:00 14:42:00 VALERY campoverde [facility] 2021-06-29 2021-06-29 Emergency DIANA Morgan [id number] [facility] 10:21:00 14:42:00 Valery CORADO [id number] i ty [facility] [id number] [facility] [id number] [facility] 084 Branch 2020-01-20 2020-01-20 Outpatient Geno-Mbayo VFP VFP [id number] [facility] 11:59:00 11:59:00 _A_AH [id number] Family Practic e 2020-01-16 2020-01-16 Outpatient Geno-Mbayo VFP VFP [id number] [facility] 06:40:00 06:40:00 _A_AH 70201 Family Practic e 2020-01-06 2020-01-06 Lyn VFP [place] - [id number] [facility] 00:00:00 00:00:00 Alex [facility] elkin beltran, SHIPPER RECEIVER: Medical - Practi c [email or web address] [address], [place] [address] , Ph. 2019-07-31 2019-07-31 Outpatient Geno-Mbayo VFP VFP [id number] [facility] 05:27:00 05:27:00 _A_AH [id number] Family Practic e 2019-07-29 2019-07-29 Outpatient Geno-Mbayo VFP VFP [id number] [facility] 12:54:00 12:54:00 _A_AH [id number] Family Practic e 2019-07-04 2019-07-04 Outpatient Geno-Mbayo VFP VFP [id number] [facility] 02:30:00 02:30:00 _A_AH [id number] Family Practic e 2019-06-29 2019-06-29 Outpatient Geno-Mbayo VFP VFP [id number] [facility] 12:15:00 12:15:00 _A_AH [id number] Family Practic e 2019-06-04 2019-06-04 Outpatient Geno-Mbayo VFP VFP [id number] [facility] 09:38:00 09:38:00 _A_AH [id number] Family Practic e 2019-05-26 2019-05-26 Lyn VFP [place] - [id number] [facility] 00:00:00 00:00:00 Alex [facility] elkin ruby, SHIPPER RECEIVER: Medical - Practi c [email or web address] [address], [place] [address] , Ph. 2019-03-26 2019-03-26 Outpatient Geno-Mbayo VFP VFP [id number] [facility] 07:12:00 07:12:00 _A_AH 69606 Family Practic e Results Test Description Test Time Test Comments Results Result Comments Source COMP. METABOLIC PANEL (20433) 2021-06-29 16:15:23 Test Item Value Reference Range Interpretation Comme nts NA (test code = 3661980453) 137 mmol/L 135-145 K (test code = 8789932323) 4.6 mmol/L 3.5-5.0 CL (test code = 1537632198) 101 mmol/L 98-108 CO2 TOTAL (test code = 25 mmol/L 23-31 5656550165) AGAP (test code = 0210769668) 2-16 BUN (test code = 0566885417) 22 mg/dL 7-23 GLUCOSE (test code = 8462508388) 107 mg/dL 70-110 CREATININE (test code = 0.89 mg/dL 0.60-1.25 6233217070) TOTAL BILI (test code = 0.5 mg/dL 0.1-1.4 7249697924) CALCIUM (test code = 4617806588) 10.4 mg/dL 8.6-10.6 T PROTEIN (test code = 7.5 g/dL 6.3-8.2 3405376571) ALBUMIN (test code = 4345160743) 4.5 g/dL 3.5-5.0 ALK PHOS (test code = 4782029490) 71 U/L 34-122 ALTv (test code = 1742-6) 20 U/L 5-50 AST(SGOT) (test code = 34 U/L 13-40 8428198344) eGFR (test code = 1004098823) mL/min/1.73m2 DENISE (test code = DENISE) Association [...] or urine or abnormalities in imaging tests). [facility] WITH [id number] 16:02:18 Test Item Value Reference Range Interpretation Comments WBC (test code = See_Comment H [Automated 9190-2) message] The system which generated this result [...] RDW-SD (test code = 50.6 fL 38.5-51.6 87673-5) RDW-CV (test code = 14.5 % 12.1-15.4 788-0) PLT (test code = See_Comment [Automated 777-3) message] The system which generated this result transmit precious reference range : 150 - 328 10*3/ ?L. The reference range was not u sed to interpret th is result as normal/abnormal . MPV (test code = 9.3 fL 9.8-13.0 L 07295-3) NRBC/100 WBC (test See_Comment [Automat ed code = 4064886118) message] The system which generated this result transmit precious reference range : 0.0 - 10.0 /100 WBCs. The reference range was not used to interpret this result as normal/abnormal . NRBC x10^3 (test code <0.01 See_Comment [Auto mated = 6265260153) message] The system which generated this result transmit precious reference range : 10*3/?L. The reference range was not used to interpret this result as normal/abnormal . GRAN MAT (NEUT) % 82.5 % (test code = 770-8) IMM GRAN % (test code 0.90 % = 7549777946) LYMPH % (test code = 9.0 % 736-9) MONO % (test code = 7.1 % 5905-5) EOS % (test code = 0.1 % 713-8) BASO % (test code = 0.4 % 706-2) GRAN MAT x10^3(ANC) 10.32 10*3/uL 1.99-6.95 H (test code = 0946160699) IMM GRAN x10^3 (test 0.11 10*3/uL 0.00-0.06 H code = 4359214637) LYMPH x10^3 (test code 1.12 10*3/uL 1.09-3.23 = 731-0) MONO x10^3 (test code 0.89 10*3/uL 0.36-1.02 = 742-7) EOS x10^3 (test code = <0.03 0.06-0.53 L 711-2) BASO x10^3 (test code 0.05 10*3/uL 0.01-0.09 = 704-7) Lab Interpretation Abnormal (test code = 94019-4) [facility]"
[2021-07-07 20:17] LABS: Absolute Lymphocytes (CBC) 1.2 K/uL (0.7-4.9); Hematocrit 42.3 % (39.6-49.0); Lymphocytes % 10.3 % (15.3-44.8); MPV 7.2 fL (7.6-11.3); RBC Red Blood Cell Count 4.42 M/uL (4.33-5.43)
[2021-07-07 20:34] LABS: Protime INR 1.17
[2021-07-07] MEDS ORDERED: LIDOCAINE 1% W/EPI 1:100,000 MDV 20 ML VIAL ONE (20:39)
[2021-07-07 20:56] LABS: Albumin 3.4 g/dL (3.4-5.0); Bilirubin Direct 0.1 mg/dL (0-0.2); Bilirubin Total 0.4 mg/dL (0.2-1.0); Magnesium 2.1 mg/dL (1.8-2.4); Protein, Total 6.9 g/dL (6.4-8.2); Troponin High Sensitivity 20.2 pg/mL (<58.9)
--- NOTE | 2021-07-07 21:01 | RAD REPORT ---
EXAM DESCRIPTION: Jason Single View07/07/2021 8:24 pm CLINICAL HISTORY: Weakness and diarrhea COMPARISON: June 2021 FINDINGS: Lungs are moderately hyperaerated. The lungs appear clear of acute infiltrate. The heart is normal size IMPRESSION: No acute abnormalities displayed
[2021-07-07] MEDS ORDERED: Ringers Lactate 1,000 ML IV ONE (21:18)
--- NOTE | 2021-07-07 22:19 | ER ---
Nurse's Notes [facility] Name: Arben Young Age: 80 yrs Sex: Male : 1940 Arrival Date: 07/07/2021 Time: 18:49 Bed 15 Private MD: Diagnosis: Diarrhea, unspecified;Dehydration;Hypokalemia Presentation: 07/07 18:35 Chief complaint: EMS states: Patient has not ate any food in 15 days, family reports 2 jg9 weeks ago the patient weighed 130 lbs, today patient weighed 110 lbs, family reports patient was out in the yard hallucinating, patient reports constant diarrhea-patient on ABX, and patient reports generalized weakness. Coronavirus screen: Vaccine status: Patient reports being unvaccinated. Ebola Screen: Patient negative for fever greater than or equal to 101.5 degrees Fahrenheit, and additional compatible Ebola Virus Disease symptoms Patient denies exposure to infectious person. Patient denies travel to an Ebola-affected area in the 21 days before illness onset. Initial Sepsis Screen: Does the patient meet any 2 criteria? No. Patient's initial sepsis screen is negative. Does the patient have a suspected source of infection? No. Patient's initial sepsis screen is negative. Risk Assessment: Do you want to hurt yourself or someone else? Patient reports no desire to harm self or others. Onset of symptoms is unknown. 18:35 Method Of Arrival: EMS: [facility] jg9 18:35 Acuity: CHAS 3 jg9 Triage Assessment: 18:35 General: Appears in no apparent distress. Behavior is calm, cooperative. Pain: Denies jg9 pain. Historical: - Allergies: 18:52 No Known Allergies; jg9 - Home Meds: 18:52 Flomax Oral [Active]; thyroid (pork) Oral [Active]; jg9 - Immunization history:: Adult Immunizations not up to date. - Social history:: Smoking status: Patient reports the use of cigarette tobacco products, smokes one pack cigarettes per day. Screenin:54 Abuse screen: Denies threats or abuse. Denies injuries from another. Nutritional jg9 screening: patient not eating x 15 days. Tuberculosis screening: No symptoms or risk factors identified. Fall Risk None identified. Assessment: 19:00 General: Appears in no apparent distress. comfortable, slender. Pain: Denies pain. vc1 Neuro: Level of Consciousness is awake, alert, obeys commands, Oriented to person, place, time, situation, Appropriate for age. Cardiovascular: Capillary refill < 3 seconds. Respiratory: Airway is patent Respiratory effort is even, unlabored, Respiratory pattern is regular, symmetrical. GI: Reports diarrhea, intolerance of fluids, intolerance of food. : No deficits noted. Derm: No deficits noted. 20:00 Reassessment: No changes from previously documented assessment. Patient and/or family vc1 updated on plan of care and expected duration. Pain level reassessed. Patient is alert, oriented x 3, equal unlabored respirations, skin warm/dry/pink. 21:00 Reassessment: No changes from previously documented assessment. Patient and/or family vc1 updated on plan of care and expected duration. Pain level reassessed. Patient is alert, oriented x 3, equal unlabored respirations, skin warm/dry/pink. 22:00 Reassessment: No changes from previously documented assessment. Patient and/or family vc1 updated on plan of care and expected duration. Pain level reassessed. Patient is alert, oriented x 3, equal unlabored respirations, skin warm/dry/pink. 23:00 Reassessment: No changes from previously documented assessment. Patient and/or family vc1 updated on plan of care and expected duration. Pain level reassessed. Patient is alert, oriented x 3, equal unlabored respirations, skin warm/dry/pink. 07/08 00:03 Reassessment: No changes from previously documented assessment. Patient and/or family vc1 updated on plan of care and expected duration. Pain level reassessed. Patient is alert, oriented x 3, equal unlabored respirations, skin warm/dry/pink. Vital Signs: 07/07 18:35 BP 105 / 70; Pulse 84; Resp 19 S; Temp 98.3(A); Pulse Ox 96% on R/A; Weight 49.9 kg jg9 (R); Height 6 ft. 0 in. (182.88 cm) (R); Pain 0/10; 19:15 BP 105 / 68; Pulse 77; Resp 20; Pulse Ox 96% ; vc1 20:00 BP 118 / 66; Pulse 65; Resp 22; Pulse Ox 97% on R/A; vc1 21:00 BP 114 / 63; Pulse 65; Resp 23; Pulse Ox 100% on R/A; vc1 22:00 BP 115 / 62; Pulse 65; Resp 20; Pulse Ox 97% ; vc1 23:00 BP 129 / 70; Pulse 58; Resp 20; Pulse Ox 95% on R/A; vc1 18:35 Body Mass Index 14.92 (49.90 kg, 182.88 cm) j9 ED Course: 18:49 Patient arrived in ED. 9 18:50 Lexus Marks, CONNIE is Primary Nurse. j9 18:52 Yfn Cotto PA is PHCP. [facility] 18:52 Jitendra Lei MD is Attending Physician. [facility] 18:52 Triage completed. j9 18:54 Arm band placed on right wrist. j9 18:58 Patient has correct armband on for positive identification. Bed in low position. Call j9 light in reach. Side rails up X 1. 19:22 Client placed on continuous cardiac and pulse oximetry monitoring. NIBP monitoring wm applied. 19:22 EKG done, by ED staff, COVID swab sent to lab. wm 19:23 SARS-COV-2 RT PCR (Document "Date of Onset" if Symptomatic) Sent. 19:30 Primary Nurse role handed off by Lexus Marks RN mw2 20:18 Ellen Neves, CONNIE is Primary Nurse. [facility] 20:26 XRAY Chest (1 view) In Process Unspecified. EDMO 22:19 Claudine Dobbins MD is Hospitalizing Provider. [facility] 07/08 00:02 No provider procedures requiring assistance completed. Patient admitted, IV remains in vc1 place. Administered Medications: 07/07 21:25 Drug: Lactated Ringers Solution 1000 ml Route: IV; Rate: 150 ml/hr; Site: left vc1 antecubital; 07/08 00:04 Follow up: IV Status: Infusion continued upon admission 1 07/07 23:23 Not Given (Other Intervention Used): Potassium Chloride 40 mEq PO once tw5 23:43 Drug: Potassium Effervescent Tablet 50 mEq Route: PO; 1 07/08 00:03 Follow up: Response: No adverse reaction [facility] Medication: 07/07 18:58 VIS not applicable for this client. j9 Outcome: 22:19 Decision to Hospitalize by Provider. shelia 07/08 00:02 Admitted to Med/surg accompanied by tech, via wheelchair, room 204. vc1 Condition: good Instructed on the need for admit. 00:03 Patient left the ED. vc1 Signatures: Dispatcher [employer] EDMS Yfn Cotto PA PA jmm [place], MyKena mw2 Lu Carrizales Jennifer, RN RN jg9 Ellen Neves RN RN vc1 Carmela Londono tw5
--- NOTE | 2021-07-07 22:20 | EDPHYS ---
Physician Documentation [facility] Name: Arben Young Age: 80 yrs Sex: Male : 1940 Arrival Date: 07/07/2021 Time: 18:49 Bed 15 Private MD: ED Physician Jitendra Lei HPI: 07/07 18:52 This 80 yrs old Male presents to ER via EMS with complaints of Decreased Appetite. jmm 18:52 The patient presents to the emergency department with nausea, diarrhea. Onset: The jmm symptoms/episode began/occurred gradually, 18 day(s) ago. Possible causes: unknown. The symptoms are aggravated by nothing. The symptoms are alleviated by nothing. Associated signs and symptoms: Pertinent positives: diarrhea. Patient has had multiple ER visits. Family states the patient has lost 30 lbs since onset. Patient will have a bm after every meal. . Historical: - Allergies: 18:52 No Known Allergies; jg9 - Home Meds: 18:52 Flomax Oral [Active]; thyroid (pork) Oral [Active]; jg9 - Immunization history:: Adult Immunizations not up to date. - Social history:: Smoking status: Patient reports the use of cigarette tobacco products, smokes one pack cigarettes per day. ROS: 18:52 Constitutional: Negative for fever, chills, and weight loss, Cardiovascular: Negative jmm for chest pain, palpitations, and edema, Respiratory: Negative for shortness of breath, cough, wheezing, and pleuritic chest pain. 18:52 Abdomen/GI: Positive for diarrhea. 18:52 All other systems are negative. Exam: 18:52 Constitutional: This is a well developed, well nourished patient who is awake, alert, jmm and in no acute distress. Head/Face: atraumatic. Eyes: EOMI, no conjunctival erythema appreciated ENT: Moist Mucus Membranes Neck: Trachea midline, Supple Chest/axilla: Normal chest wall appearance and motion. Cardiovascular: Regular rate and rhythm. No edema appreciated Respiratory: Normal respirations, no respiratory distress appreciated Abdomen/GI: Non distended, soft 18:52 Skin: General appearance color normal MS/ Extremity: Moves all extremities, no obvious deformities appreciated, no edema noted to the lower extremities Neuro: Awake and alert Psych: Behavior is normal, Mood is normal, Patient is cooperative and pleasant 18:52 Abdomen/GI: Inspection: abdomen appears normal, Palpation: abdomen is soft and non-tender, in all quadrants. Vital Signs: 18:35 BP 105 / 70; Pulse 84; Resp 19 S; Temp 98.3(A); Pulse Ox 96% on R/A; Weight 49.9 kg jg9 (R); Height 6 ft. 0 in. (182.88 cm) (R); Pain 0/10; 19:15 BP 105 / 68; Pulse 77; Resp 20; Pulse Ox 96% ; vc1 20:00 BP 118 / 66; Pulse 65; Resp 22; Pulse Ox 97% on R/A; vc1 21:00 BP 114 / 63; Pulse 65; Resp 23; Pulse Ox 100% on R/A; vc1 22:00 BP 115 / 62; Pulse 65; Resp 20; Pulse Ox 97% ; vc1 23:00 BP 129 / 70; Pulse 58; Resp 20; Pulse Ox 95% on R/A; vc1 18:35 Body Mass Index 14.92 (49.90 kg, 182.88 cm) jg9 MDM: 18:52 Patient medically screened. blaire 22:18 Data reviewed: vital signs, nurses notes. Counseling: I had a detailed discussion with shelia the patient and/or guardian regarding: the historical points, exam findings, and any diagnostic results supporting the discharge/admit diagnosis, lab results, the need for further work-up and treatment in the hospital. ED course: I discussed the patient with Alycia Young whom accepted the patient to Dr. Ordoñez service. . 07/07 18:55 Order name: Basic Metabolic Panel; Complete Time: 20:58 [facility] 07/07 18:55 Order name: CBC with Diff; Complete Time: 20:48 [facility] 07/07 18:55 Order name: LFT's; Complete Time: 20:58 [facility] 07/07 18:55 Order name: Magnesium; Complete Time: 20:58 [facility] 07/07 18:55 Order name: NT PRO-BNP; Complete Time: 20:58 [facility] 07/07 18:55 Order name: PT-INR; Complete Time: 20:48 [facility] 07/07 18:55 Order name: Troponin HS; Complete Time: 20:58 [facility] 07/07 18:55 Order name: XRAY Chest (1 view); Complete Time: 21:05 [facility] 07/07 18:55 Order name: EKG; Complete Time: 18:56 [facility] 07/07 18:55 Order name: Cardiac monitoring; Complete Time: 19:22 [facility] 07/07 18:57 Order name: SARS-COV-2 RT PCR (Document "Date of Onset" if Symptomatic); Complete Time: [facility] 20:50 07/07 18:55 Order name: EKG - Nurse/Tech; Complete Time: 19:22 [facility] 07/07 18:55 Order name: IV Saline Lock; Complete Time: 20:18 [facility] 07/07 18:55 Order name: Labs collected and sent; Complete Time: 20:18 [facility] 07/07 18:55 Order name: O2 Per Protocol; Complete Time: 20:18 [facility] 07/07 18:55 Order name: O2 Sat Monitoring; Complete Time: 19:22 [facility] Administered Medications: 21:25 Drug: Lactated Ringers Solution 1000 ml Route: IV; Rate: 150 ml/hr; Site: left vc1 antecubital; 07/08 00:04 Follow up: IV Status: Infusion continued upon admission [facility] 07/07 23:23 Not Given (Other Intervention Used): Potassium Chloride 40 mEq PO once tw5 23:43 Drug: Potassium Effervescent Tablet 50 mEq Route: PO; vc1 07/08 00:03 Follow up: Response: No adverse reaction vc1 Disposition Summary: 07/07/21 22:19 Hospitalization Ordered Hospitalization Status: Observation [facility] Provider: Claudine Dobbins Location: Telemetry/MedSurg (observation) [facility] Condition: Stable [facility] Problem: new [facility] Symptoms: are unchanged [facility] Bed/Room Type: Standard [facility] Room Assignment: 204(07/07/21 23:28) tw5 Diagnosis - Diarrhea, unspecified [facility] - Dehydration [facility] - Hypokalemia [facility] Forms: - Medication Reconciliation Form [facility] - SBAR form [facility] Addendum: 07/22/2021 13:47 Co-signature as Attending Physician, Jitendra Lei MD I agree with the assessment and c velásquez plan of care. Signatures: Dispatcher [employer] Jitendra Escobar MD MD cha Mickail, Joel, PA PA Carmela Dominguez tw5 Lexus Marks RN RN jg9 Ellen Neves RN RN vc1 Corrections: (The following items were deleted from the chart) 07/07 23:28 22:19 shelia twJerzy
--- NOTE | 2021-07-07 23:24 | P.HP ---
Certification for Inpatient Patient admitted to: Observation With expected LOS: <2 Midnights Patient will require the following post-hospital care: None Practitioner: I am a practitioner with admitting privileges, knowledge of patient current condition, hospital course, and medical plan of care. Services: Services provided to patient in accordance with Admission requirements found in Title 42 Section 412.3 of the Code of Federal Regulations <Rachel Young - Last Filed: 07/08/21 06:02> Patient History Date of Service: 07/08/21 Reason for admission: Enteritis, Diarrhea, Hypokalemia History of Present Illness: Patient is a 80-year-old male with no medical problems who presented to the ED via EMS with complaints of decreased appetite and 20 pound weight loss in 2 weeks. Family reports an episode of hallucinations. Patient reports constant diarrhea and generalized weakness. He was seen in the ED 3 days ago where his CT showed enteritis and mild gallbladder distention. He was discharged on Levaquin and Flagyl. He states he has had no improvement in symptoms. He denies any abdominal pain or vomiting. Labs significant for WBC 11.7 and potassium 3.0. He was given 1L LR and supplemental potassium in the ED. ED provider wishes to admit patient for observation. - Past Medical/Surgical History Diabetic: No Past Medical History: Patient denies medical history -: Appendectomy Psychosocial/ Personal History: Patient lives at home alone. - Family History Father -: Cancer - Social History Smoking Status: Current every day smoker Alcohol use: Yes CD- Drugs: No Caffeine use: Yes Place of Residence: Home <Rachel Young - Last Filed: 07/08/21 06:02> Date of Service: 07/08/21 <Claudine Dobbins - Last Filed: 07/10/21 10:21> Allergies No Known Allergies Allergy (Verified 06/22/20 10:25) Home Medications: Ascorbic Acid [Vitamin C] 500 mg PO DAILY 03/14/17 Cholecalciferol (Vitamin D3) [Vitamin D 1000 Iu Tab] 1,000 unit PO DAILY 03/14/17 Tamsulosin [Flomax] 0.4 mg PO BEDTIME 03/14/17 Vitamin B Complex [B-Complex Vitamin] 1 cap PO DAILY 03/14/17 Vitamin E (Dl,Tocopheryl Acet) [Vitamin E] 1,000 unit PO DAILY 03/14/17 Aspirin [Aspirin EC 325 MG] 325 mg PO DAILY 06/22/20 Thyroid Tab [Roberts Thyroid] 30 mg PO DAILY 07/08/21 Review of Systems 10-point ROS is otherwise unremarkable General: Weakness Gastrointestinal: Diarrhea <Rachel Young - Last Filed: 07/08/21 06:02> Physical Examination - Physical Exam General: Alert, In no apparent distress HEENT: Atraumatic, PERRLA, EOMI, Sclerae nonicteric Neck: Supple, 2+ carotid pulse no bruit, No LAD, Without JVD or thyroid abnormality Respiratory: Clear to auscultation bilaterally, Normal air movement Cardiovascular: Regular rate/rhythm, Normal S1 S2 Gastrointestinal: Normal bowel sounds, No tenderness Musculoskeletal: No tenderness Integumentary: No rashes Neurological: Normal speech, Normal strength at 5/5 x4 extr, Normal affect - Studies Laboratory Data (last 24 hrs) 07/07/21 20:05: PT 12.9 H, INR 1.17 07/07/21 20:05: WBC 11.7 H, Hgb 14.3, Hct 42.3, Plt Count 305 07/07/21 20:05: Sodium 137, Potassium 3.0 L, BUN 15, Creatinine 1.19, Glucose 91, Magnesium 2.1, Total Bilirubin 0.4, AST 27, ALT 27, Alkaline Phosphatase 54 <Rachel Young - Last Filed: 07/08/21 06:02> - Studies Microbiology Data (last 24 hrs): 07/08/21 21:35 Stool Fecal Leukocyte Stain - Final <Claudine Dobbins - Last Filed: 07/10/21 10:21> Assessment and Plan - Problems (Diagnosis) (1) Diarrhea Current Visit: Yes Status: Acute Qualifiers: Diarrhea type: unspecified type Qualified Code(s): R19.7 - Diarrhea, unspecified (2) Enteritis Current Visit: Yes Status: Acute (3) Acute hypokalemia Current Visit: Yes Status: Acute (4) Weight loss, non-intentional Current Visit: Yes Status: Acute - Plan -Continue Levaquin and Flagyl for enteritis -Replace potassium per protocol -Continue IV fluids -C. difficile ordered -Lovenox for VTE prophylaxis -Full code Discharge Plan: Home Plan to discharge in: 24 Hours - Advance Directives Does patient have a Living Will: No Does patient have a Durable POA for Healthcare: No - Code Status/Comfort Care Code Status Assessed: Yes (Full) Critical Care: No Time Spent Managing Pts Care (In Minutes): 50 <Rachel Young - Last Filed: 07/08/21 06:02> Date of Service: 07/08/21 Subjective: HPI as mentioned above Physical Examination: Vitals: Afebrile vital signs are stable Physical exam: Cardiovascular: Within normal limits. Lungs: Within normal limits Abdomen: Within normal limits Neuro: Awake, alert, oriented to person place and time Assessment: 1. Persistent diarrhea Plan: 1. Continue with current plan of care as mentioned above <Claudine Dobbins - Last Filed: 07/10/21 10:21>
[2021-07-07] MEDS ORDERED: POTASSIUM 25 MEQ EFFERV TAB ONE (23:28)
[2021-07-08] MEDS ORDERED: ACETAMINOPHEN 500 MG TAB PO PRN (00:07)
[2021-07-08] MEDS ORDERED: ONDANSETRON 4 MG/2 ML VIAL IV PRN (00:07)
[2021-07-08 00:26] VITALS: BMI 15.2
[2021-07-08 06:16] LABS: Absolute Lymphocytes (CBC) 1.9 K/uL (0.7-4.9); Hematocrit 41.3 % (39.6-49.0); Lymphocytes % 19.4 % (15.3-44.8); MPV 7.4 fL (7.6-11.3); RBC Red Blood Cell Count 4.32 M/uL (4.33-5.43)
[2021-07-08 06:19] LABS: Magnesium 1.8 mg/dL (1.8-2.4); Phosphorus 1.9 mg/dL (2.5-4.9); Potassium 3.2 mmol/L (3.5-5.1)
[2021-07-08] MEDS: Ringers Lactate 1,000 ML IV SCH ×2 (07:12→16:45)
[2021-07-08] MEDS ORDERED: POTASSIUM CL SA 10 MEQ TAB PO ONE ×3 (09:00→22:47)
[2021-07-08] MEDS: CIPROFLOXACIN HCL 500 MG TAB PO SCH ×3 (09:00→20:53)
[2021-07-08] MEDS: ENOXAPARIN 40 MG/0.4 ML SQ SCH (09:46)
[2021-07-08] MEDS: metroNIDAZOLE 500 MG TABLET PO SCH ×3 (09:46→20:52)
[2021-07-08] MEDS ORDERED: METHYLPREDNISOLONE 125 MG INJ IV ONE (10:54)
[2021-07-08] MEDS: Banana Flakes/T-Galactooligos 1 Dose Packet PO SCH (20:50)
[2021-07-08] MEDS: ENSURE HIGH PROTEIN 237 ML CAN PO SCH (20:54)
[2021-07-09] MEDS: Ringers Lactate 1,000 ML IV SCH ×3 (03:00→23:00)
[2021-07-09 04:21] LABS: Potassium 3.7 mmol/L (3.5-5.1)
[2021-07-09 04:34] LABS: Urine Appearance Clear (Clear); Urine Blood Negative (Negative); Urine Color Yellow (Yellow); Urine Glucose Negative (Negative); Urine Protein 1+ (Negative); Urine Specific Gravity >=1.030 (1.005-1.030); Urine Urobilinogen 0.2 mg/dL (0.2-1.0)
[2021-07-09 04:38] LABS: Urine Microscopic Reflex ORDER UMIC
[2021-07-09 05:29] LABS: Urine Amorphous Sediment 3+ /HPF (NONE SEEN); Urine Bacteria >50 /HPF (NONE SEEN); Urine Mucus 2+ /HPF (NONE SEEN); Urine RBC <5 /HPF (NONE SEEN)
[2021-07-09 05:47] LABS: Urine Bilirubin NEGATIVE (Negative)
[2021-07-09] MEDS: metroNIDAZOLE 500 MG TABLET PO SCH ×3 (08:42→20:55)
[2021-07-09] MEDS: ENOXAPARIN 40 MG/0.4 ML SQ SCH (08:47)
[2021-07-09] MEDS: ENSURE HIGH PROTEIN 237 ML CAN PO SCH ×2 (08:48→20:57)
[2021-07-09] MEDS: CIPROFLOXACIN HCL 500 MG TAB PO SCH (08:48)
[2021-07-09] MEDS ORDERED: POTASSIUM CL SA 10 MEQ TAB PO ONE (09:00)
[2021-07-09] MEDS: Banana Flakes/T-Galactooligos 1 Dose Packet PO SCH ×2 (10:34→21:00)
[2021-07-09 14:17] LABS: C.diff Antigen/Toxin Ag neg : Tox neg (NEG : NEG)
--- NOTE | 2021-07-09 14:31 | EKG ---
Test Date: 2021-07-07 Test Time: 19:11:47 Violin Repairer: MEASUREMENT RESULTS: Intervals: Rate: 74 MA: 182 QRSD: 134 QT: 404 QTc: 448 Yawkey: P: 61 MA: 182 QRS: 128 T: 46 INTERPRETIVE STATEMENTS: Normal sinus rhythm Right bundle branch block Possible Lateral infarct, age undetermined Abnormal ECG Compared to ECG 07/04/2021 09:59:40 Right bundle-branch block now present Myocardial infarct finding now present Indeterminate axis no longer present Electronically Signed On 07-09-21 14:30:41 CDT by Sly Gore
[2021-07-09] MEDS: METHYLPREDNISOLONE 125 MG INJ IV SCH ×2 (16:06→18:23)
--- NOTE | 2021-07-09 17:22 | RAD REPORT ---
EXAM DESCRIPTION: CT - Abdomen Pelvis W Contrast - 07/09/2021 4:46 pm CLINICAL HISTORY: Abdominal pain. COMPARISON: None. TECHNIQUE: Computed axial tomography of the abdomen and pelvis was obtained. 100 cc Isovue-300 is ad ministered intravenously. Oral contrast was given. All CT scans are performed using dose optimization technique as appropriate and may include automated exposure control or mA/KV adjustment according to patient size. FINDINGS: Layering densities within the gallbladder. The liver, spleen, pancreas, adrenals and kidneys appear unremarkable. There is no evidence of diverticulitis Pills within the colon. Prostate gland is mildly enlarged. Spondylosis involves the lumbar spine IMPRESSION: Layering densities within the gallbladder probably sludge.
[2021-07-09] MEDS ORDERED: TAMSULOSIN 0.4 MG SR CAP PO SCH (21:00)
[2021-07-10] MEDS: METHYLPREDNISOLONE 125 MG INJ IV SCH ×3 (00:42→11:08)
[2021-07-10 04:10] LABS: Potassium 3.7 mmol/L (3.5-5.1)
[2021-07-10] MEDS: Ringers Lactate 1,000 ML IV SCH (05:41)
[2021-07-10] MEDS ORDERED: POTASSIUM CL SA 10 MEQ TAB PO ONE (06:00)
[2021-07-10] MEDS: metroNIDAZOLE 500 MG TABLET PO SCH (08:33)
[2021-07-10] MEDS: ENOXAPARIN 40 MG/0.4 ML SQ SCH (08:33)
[2021-07-10] MEDS: ENSURE HIGH PROTEIN 237 ML CAN PO SCH (08:34)
[2021-07-10] MEDS: Banana Flakes/T-Galactooligos 1 Dose Packet PO SCH (08:34)
[2021-07-10] MEDS ORDERED: ASPIRIN EC 325 MG TABLET PO SCH (09:00)
[2021-07-10] MEDS ORDERED: LOPERAMIDE HCL 2 MG CAPSULE PO STA (10:18)
--- NOTE | 2021-07-10 10:22 | P.PN ---
Subjective Date of Service: 07/09/21 Subjective: No new changes, No C/O voiced, Improving Will get dedicated CT imaging Review of Systems 10-point ROS is otherwise unremarkable Physical Examination - Vital Signs Temperature: 97.4 F Blood Pressure: 98/53 Pulse: 47 Respirations: 18 Pulse Ox (%): 96 - Physical Exam General: Alert, In no apparent distress HEENT: Atraumatic, PERRLA, EOMI Neck: Supple, JVD not distended Respiratory: Clear to auscultation bilaterally, Normal air movement Cardiovascular: Regular rate/rhythm, Normal S1 S2 Gastrointestinal: Normal bowel sounds, No tenderness Musculoskeletal: No tenderness Integumentary: No rashes Neurological: Normal speech, Normal tone, Normal affect Lymphatics: No axilla or inguinal lymphadenopathy - Studies Microbiology Data (last 24 hrs): 07/08/21 21:35 Stool Fecal Leukocyte Stain - Final Medications List Reviewed: Yes Assessment & Plan - Problems (Diagnosis) (1) Diarrhea Current Visit: Yes Status: Acute Qualifiers: Diarrhea type: unspecified type Qualified Code(s): R19.7 - Diarrhea, unspecified - Plan -IV antibiotics -IV fluids -Surgery and GI consultation -CBC, CMP, lipase, stool cultures -N.p.o. -Repeat abdominal film -NG tube -Antiemetics Discharge Plan: Home Plan to discharge in: Greater than 2 days - Advance Directives Does patient have a Living Will: No Does patient have a Durable POA for Healthcare: No - Code Status/Comfort Care Code Status Assessed: Yes Code Status: Full Code Critical Care: No Time Spent Managing PTS Care (In Minutes): 45
[2021-07-10 10:41] VITALS: O2SAT 96
[2021-07-10 12:23] VITALS: BP 91/52; TEMP 97.3
== END 2021-07-10 11:51 | disposition home or self-care (01) | DRG 392 ==
LOC: ER 18:39 → ERHOLD 23:16 → 2ND 23:55 → OBSVTOIN 07-09 12:04
PROVIDERS: ADMIT Hospitalist; ATTEND Hospitalist
DX: K52.9 Noninfective gastroenteritis and colitis, unspecified (principal); Z68.1 Body mass index [BMI] 19.9 or less, adult; E87.6 Hypokalemia; R63.4 Abnormal weight loss; F17.210 Nicotine dependence, cigarettes, uncomplicated; Z20.822 Contact with and (suspected) exposure to COVID-19
CPT/HCPCS: 36415; 71045; 74177; 80048; 80076; 81003; 81015; 83735; 83880; 84100; 84132; 84484; 85025; 85610; 87086; 87088; 87324; 87449; 87493; 89055; 93005; 96360; 96361; 99285; G0378; J1650; J2930; J7120; Q9967; U0003

== ENCOUNTER 2022-09-26 13:08 | Emergency (ER) | payer OTHER ==
--- OUTSIDE RECORDS SUMMARY | 2022-09-26 13:11 | XMS REPORT | Continuity of Care Document ---
:1940 Author Organization [facility] t Address [address] [facility] [address] [place] [address] Care Team Providers Name Role Phone IRAJ MARTIN Primary Care Physician Unavailable Eboni Brown RN Attending Clinician Unavailable MONIQUE RICE Attending Clinician Unavailable Jaja Merrill DO Attending Clinician Monique Rice MD Attending Clinician VALERY MORGAN Attending Clinician Unavailable Valery Verduzco Attending Clinician Geno-Angelao_A_AH Attending Clinician Unavailable MONIQUE RICE Admitting Clinician Unavailable Monique Rice MD Admitting Clinician Ceasar_A_YURIY Admitting Clinician Unavailable Payers Payer Name Policy Type Policy Number Effective Date Expiration Date S [facility] [place] - [id number] 2019 [employer] 00:00:00 (MEDICARE REPLACEMENT/ADVANT AGE - HMO) Problems Condition Condition Condition Status Onset Resolution Last Treating Co mments Source Name Details Category Date Date Treatment Clinician Date Foot Foot Disease Active 2021-02 Univers infection infection 02-05 ity of 00:00: [place] [address] Medical Branch 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, Episodes, 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 2018-02 [place] dism dism 03-01 Family 00:00: Practic 00 e 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 [place]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 hyperplasi Hyperplasi 00:00: Pr actic a a 00 e No known No known Disease Unive rs active active ity of problems problems [place] [facility] [place] Allergies, Adverse Reactions, Alerts Allergy Allergy Status Severity Reaction(s) Onset Inactive Treating Comm ents Source Name Type Date Date Clinician NO KNOWN Drug Active Univers ALLERGIE Class ity of S [place] [facility] Social History Social Habit Start Date Stop Date Quantity Comments Source History SDIN Food 2021-12-08 2021-12-08 1 Univers ity of [place] Worry 00:00:00 00:00:00 Medical Branch History SDOH Food 2021-12-08 2021-12-08 1 Univers ity of [place] Scarcity 00:00:00 00:00:00 Medical Branch History SDOH 2021-12-08 2021-12-[address] [facility] Transport Med 00:00:00 00:00:00 Medical Bra nc History SDOH 2021-12-08 2021-12-[address] [facility] Transport Non-Med 00:00:00 00:00:00 Medical Branch Exposure to 2021-11-26 2021-12-06 Not sure [facility] SARS-CoV-2 (event) 00:00:00 14:59:00 Medica l Branch Sex Assigned At [address] [facility] 00:00:00 00:00:00 Medical Branch Smoking Status Start Date Stop Date Source Tobacco smoking consumption [facility] Medical unknown Branch Light Tobacco Smoker [facility] Practice Medications Ordered Filled Start Stop Current Ordering Indication Dosage Frequency Signature Comments Components Source Medication Medication Date Date Medication? Clinician (SIG) Name Name thyroid,por 2021-02 Yes Take by Uni vers k (WINDOWS CONSULTANT 02 mouth. ity of THYROID 14:38: [place] ORAL) 44 Medical Branch tamsulosin 2021-02 Yes Take by Univ ers (FLOMAX) 102 mouth ity of 0.4 mg 24 14:38: daily. [place] hr capsule 44 Medical Branch PREDNISONE 2021-02 Yes Take by Univ ers ORAL 02 mouth. ity of 14:38: [place] 44 Medical Branch thyroid,por 2021-02 Yes Take by Uni vers k (WINDOWS CONSULTANT 102 mouth. ity of THYROID 14:38: [place] ORAL) 44 Medical Branch tamsulosin 2021-02 Yes Take by Univ ers (FLOMAX) 02 mouth ity of 0.4 mg 24 14:38: daily. [place] hr capsule 44 [facility] PREDNISONE 2021-02 Yes Take by [facility] ers ORAL 02 mouth. ity of 14:38: [address] enoxaparin 2021-02 Yes 40mg 40 mg, [facility] ([facility] 02-06 Subcutaneo ity of injection 14:00: [place] 40 mg 00 First dose Medical on Sun12/07/21 at 0900, Until Discontinu ed, Routine docusate 2021-02 Yes 100mg 100 mg, Unive rs (COLACE) 02-06 Oral, BID, ity o f capsule 100 01:00: First dose [place] mg 00 on Sun12/06/21 at Branch 2000, Until Discontinu ed, Routine amoxicillin 2021-02- No [id number] 1{tbl} Take 1 Univers -clavulanat 02-0613 tablet by it y of e 00:00: 05:59 mouth in [place] (AUGMENTIN) 00 :00 the Medical 875-125 mg morning Branch per tablet and 1 tablet in the evening. Do all this for 10 days. amoxicillin 2021-02- No [id number] 1{tbl} Take 1 Univers -clavulanat 02-0613 tablet by it y of e 00:00: 05:59 mouth in [place] (AUGMENTIN) 00 :00 the Medical 875-125 mg morning Branch per tablet and 1 tablet in the evening. Do all this for 10 days. ondansetron 2021-02 Yes 4mg 4 mg, Slow Univers (ZOFRAN 02-05 IV Push, ity of (PF)) 23:11: Q6HPRN, [place] injection 4 41 Starting Medi finesse mg on Sun12/06/21 at 1811, Until Discontinu ed, Routine, Nausea and Vomiting (N/V) morpHINE (4 2021-02- No 4mg 4 mg, Slow Univers mg/mL) 02-05 IV Push, ity of injection 4 23:11: 23:10 Q4HPRN, [place] mg 38 :38 Starting Medical on Sun12/06/21 at 1811, Until Sun12/07/21 at 1810, Routine, Pain (scale 7-10) HYDROcodone 2021-02- No 1{tbl} 1 tablet, Univers -acetaminop 02-05 Oral, ity of hen (NORCO 23:11: 23:10 Q6HPRN, [place] as 5) 5-325 mg 36 :36 Starting Medi finesse tablet 1 on [facility] Branch tablet 12/06/21 at 1811, Until Yessy 12/08/21 at 1810, Routine, Pain (scale 4-6) acetaminoph 2021-02 Yes 650mg 650 mg, Un anika en 02-05 Oral, ity of (TYLENOL) 23:11: Q6HPRN, [place] tablet 650 30 Starting Medic al mg on e Branch 12/06/21 at 1811, Until Discontinu ed, Routine, Pain (scale 1-3), Temp > 38.5 C ampicillin- 2021-02- No 3g 3 g, IV Un anika sulbactam 02-05 Piggyback, ity of (UNASYN) 3 20:15: 21:30 ONCE, 1 [place] g in NaCl 00 :00 dose, On Medica l 0.9% (NS) [facility] 100 mL 12/06/21 at MINI-BAG 1515, Administer over 30 Minutes, 100 mL
Reas on for Anti-Infec tive: Documented Infection< br>Documen precious Infection Site: Skin / Soft Tissue
Duration of Therapy: 7 days NaCl 0.9% 1000mL at 999 Uni vers (NS) bolus 5-25 05-25 mL/hr, ity of infusion 17:15: 19:04 1,000 mL, [place] 1,000 mL 00 :00 IV Medical Infusion, Branch ONCE, 1 dose, On Sun06/29/21 at 1215, STAT No known No Univers medications 5-25 ity of 11:04: [address] Branch bupropion bupropion No 1 BID bupropion [place] HCl 150 mg HCl 150 mg HCl 150 mg Family tablet,12 tablet,12 tablet,12 Practic hr hr hr e sustained-r sustained-r sustained- elease(smok elease(smok release(sm ing ing oking deterrent) deterrent) deterrent) Take 1 Take 1 Take 1 tablet tablet tablet twice a day twice a day twice a by oral by oral day by route. route. oral route. levothyroxi levothyroxi No 1capsul Q1D levothyrox [place] ne 25 mcg ne 25 mcg e(s) ine 25 mcg Family capsule capsule capsule Practi c Take 1 Take 1 Take 1 e capsule capsule capsule every day every day every day by oral by oral by oral route. route. route. tamsulosin tamsulosin No 1capsul Q1D tamsulosin [facility] 0.4 mg 0.4 mg e(s) 0.4 mg Family capsule capsule capsule Practi c Take 1 Take 1 Take 1 e capsule capsule capsule every day every day every day by oral by oral by oral route. route. route. Vital Signs Vital Name Observation Time Observation Value Comments Source Systolic blood 2021-12-07 16:52:00 113 [facility]Hg[facility] 2021-12-07 16:52:00 56 mm[Hg] [facility] Heart rate 2021-12-07 16:52:00 55 /min [facility] Body temperature 2021-12-07 16:52:00 36.56 Natali [facility] Oxygen saturation in 2021-12-07 16:52:00 97 /min [facility] Arterial blood by [facility] Pulse oximetry Lillian Respiratory rate 2021-12-07 12:53:00 16 /min [facility] Body weight 2021-12-07 08:27:00 57.97 kg [facility] BMI 2021-12-07 08:27:00 17.33 kg/m2 [facility] Body height 2021-12-07 02:42:00 182.9 cm [facility] Systolic blood 2021-06-29 19:35:07 102 mm[Hg] [facility] Diastolic blood 2021-06-29 19:35:07 66 mm[Hg] [facility] Heart rate 2021-06-29 19:35:07 84 /min [facility] Respiratory rate 2021-06-29 19:35:07 16 /min [facility] Oxygen saturation in 2021-06-29 19:35:07 98 /min [facility] Arterial blood by [facility] Pulse oximetry Branch Body temperature 2021-06-29 15:14:00 35.56 Natali [facility] Body height 2021-06-29 15:12:00 182.9 cm [facility] Body weight 2021-06-29 15:12:00 58.968 kg [facility] BMI 2021-06-29 15:12:00 17.63 kg/m2 [facility] Procedures Procedure Date / Time Performed Performing Clinician Perry murray CBC WITH DIFF 2021-12-07 11:05:00 [facility] BASIC METABOLIC PANEL 2021-12-07 11:04:[facility], K, CL, CO2, Medical Branch GLUCOSE, BUN, CREATININE, CA) [place] DRAINAGE OF 2021-12-06 21:14:[address] [facility] HEMATOMA/FLUID Medical Branch XR FOOT <3 VW LEFT 2021-12-06 20:51:37 Jaja Merrill [facility] LACTIC ACID WHOLE 2021-12-06 20:28:00 Jaja Merrill [facility] BLOOD [facility] Branch BLOOD CULTURE SCREEN 2021-12-06 20:27:00 Jaja Merrill [facility] COMP. METABOLIC PANEL 2021-12-06 20:27:00 Jaja Merrill [facility] ([id number]) Medical Lillian CBC WITH DIFF 2021-12-06 20:27:00 Jaja Merrill [facility] CONSENT/REFUSAL FOR 2021-12-06 19:55:18 Doctor Unassigned, No [facility] DIAGNOSIS AND Name Medical Branch TREATMENT COMP. METABOLIC PANEL 2021-06-29 15:31:00 Valery Morgan [facility] ([id number]) Medical Lillian CBC WITH DIFF 2021-06-29 15:31:00 Valery Morgan [facility] NOTICE OF PRIVACY 2021-06-29 14:49:44 Doctor Unassigned, No [facility] PRACTICES Name Medical Branch Encounters Start End Encounter Admission Attending Care Care Encounter Source Date/Time Date/Time Type Type Clinicians Facility Department ID 2021-12-08 2021-12-08 Transition ELENITA Brown [id number] Univers 00:00:00 00:00:00 of Care Eboni DOLL [id number] it y of ELADIA [id number] [facility] [id number] [facility] 403 Branch 2021-12-06 2021-12-07 Inpatient X NELLY RUST EVIN [id number] Univers 15:05:00 14:34:00 MONIQUE ity of [facility] 2021-12-06 2021-12-07 [facility] Jaja Merrill RUST [id number] Univers 15:05:00 14:34:00 Encounter Monique Rice [id number] [facility] [id number] [facility] [id number] [facility] 081 Branch 2021-06-29 2021-06-29 [facility] [id number] Univers 10:21:00 14:42:00 VALERY ity [facility] 2021-06-29 2021-06-29 Emergency [facility] [id number] Univers 10:21:00 14:42:00 Valery HOLLISDYLAN [id number] i ty of [place] [id number] [facility] [id number] [facility] 084 Branch 2020-01-20 2020-01-20 Outpatient Geno-Mbayo VFP VFP [address] [place] [address] 11:59:00 11:59:00 _A_AH 04608 Family Practic e 2020-01-16 2020-01-16 Outpatient Geno-Mbayo VFP VFP [address] [place] [address] 06:40:00 06:40:00 _A_AH 74162 Family Practic e 2020-01-06 2020-01-06 Lyn VFP [place] - [id number] [place] 00:00:00 00:00:00 Geno-Mbay [place] Fam elkin o, WINDOWS CONSULTANT: Medical - Practi c [address] [email or web address] [place] [address], [place] [address] , Ph. 2019-07-31 2019-07-31 Outpatient Geno-Mbayo VFP VFP [id number] [facility] 05:27:00 05:27:00 _A_AH 87531 Family Practic e 2019-07-29 2019-07-29 Outpatient Geno-Mbayo VFP VFP [id number] [facility] 12:54:00 12:54:00 _A_AH 37804 Family Practic e 2019-07-04 2019-07-04 Outpatient Geno-Mbayo VFP VFP 791 [id number] [facility] 02:30:00 02:30:00 _A_AH 31245 Family Practic e 2019-06-29 2019-06-29 Outpatient Geno-Mbayo VFP VFP [id number] [facility] 12:15:00 12:15:00 _A_AH 72108 Family Practic e 2019-06-04 2019-06-04 Outpatient Geno-Mbayo VFP VFP [id number] [facility] 09:38:00 09:38:00 _A_AH 83593 Family Practic e 2019-05-26 2019-05-26 Lyn VFP [place] - [id number] [place] 00:00:00 00:00:00 GenoAngela [facility] elkin beltran, WINDOWS CONSULTANT: Medical - Practi c [address] [email or web address] e [place] [address], [place] [address] , Ph. 2019-03-26 2019-03-26 Outpatient Geno-Mbayo VFP VFP [id number] [facility] 07:12:00 07:12:00 _A_AH 73993 Family Practic e Results Test Description Test Time Test Comments Results Result Comments Source COMP. METABOLIC PANEL (89202) 2021-12-06 20:55:40 Test Item Value Reference Range Interpretation Comme nts NA (test code = 7769321794) 140 mmol/L 135-145 K (test code = 8743140207) 4.7 mmol/L 3.5-5.0 CL (test code = 4363540311) 104 mmol/L 98-108 CO2 TOTAL (test code = 29 mmol/L 23-31 9165989802) AGAP (test code = 9809188255) 2-16 BUN (test code = 9938427547) 22 mg/dL 7-23 GLUCOSE (test code = 1809908966) 88 mg/dL 70-110 CREATININE (test code = 0.95 mg/dL 0.60-1.25 5244495344) TOTAL BILI (test code = 0.4 mg/dL 0.1-1.6 3492160773) CALCIUM (test code = 8087879366) 10.3 mg/dL 8.6-10.6 T PROTEIN (test code = 7.2 g/dL 6.3-8.2 4473459043) ALBUMIN (test code = 2530961771) 4.3 g/dL 3.5-5.0 ALK PHOS (test code = 9535586474) 72 U/L 34-122 ALTv (test code = 1742-6) 22 U/L 5-50 AST(SGOT) (test code = 28 U/L 13-40 9784842063) eGFR (test code = 4508705004) mL/min/1.73m2 DENISE (test code = DENISE) Association [...] or urine or abnormalities in imaging tests). [facility] WITH [id number] 20:43:56 Test Item Value Reference Range Interpretation Comments WBC (test code = See_Comment [Automated 6690-2) message] The sy stem which generated this result transmitted reference range : 4.20 - 10.70 10*3/?L. The reference range was not used to interpret this result as normal/abnormal . RBC (test code = See_Comment L [Automated 789-8) message] The sy stem which generated this result transmitted reference range : 4.26 - 5.52 10*6/?L. The reference range was not used to interpret this result as normal/abnormal . HGB (test code = 13.0 g/dL 12.2-16.4 718-7) HCT (test code = 37.7 % 38.4-49.3 L 4544-3) MCV (test code = 95.7 fL 81.7-95.6 H 787-2) MCH (test code = 33.0 pg 26.1-32.7 H 785-6) MCHC (test code = 34.5 g/dL 31.2-35.0 786-4) RDW-SD (test code = 50.4 fL 38.5-51.6 85147-1) RDW-CV (test code = 14.3 % 12.1-15.4 788-0) PLT (test code = See_Comment H [Automated 777-3) message] The sy stem which generated this result transmitted reference range : 150 - 328 10*3/ ?L. The reference r brandon was not used to interpret this result as normal/abnormal . MPV (test code = 8.7 fL 9.8-13.0 L 78090-9) NRBC/100 WBC (test See_Comment [Automat ed code = 0185705931) message] The system which generated this result transmitted reference range : 0.0 - 10.0 /100 WBCs. The refer ence range was not u sed to interpret th is result as normal/abnormal . NRBC x10^3 (test code See_Comment [Auto mated = 8495187939) message] The s ystem which generated this result transmitted reference range : 10*3/?L. The reference range was not used to interpret this result as normal/abnormal . GRAN MAT (NEUT) % 64.9 % (test code = 770-8) IMM GRAN % (test code 0.60 % = 5447700042) LYMPH % (test code = 24.0 % 736-9) MONO % (test code = 7.9 % 5905-5) EOS % (test code = 2.0 % 713-8) BASO % (test code = 0.6 % 706-2) GRAN MAT x10^3(ANC) 5.81 10*3/uL 1.99-6.95 (test code = 2656690964) IMM GRAN x10^3 (test 0.05 10*3/uL 0.00-0.06 code = 9261362175) LYMPH x10^3 (test code 2.15 10*3/uL 1.09-3.23 = 731-0) MONO x10^3 (test code 0.71 10*3/uL 0.36-1.02 = 742-7) EOS x10^3 (test code = 0.18 10*3/uL 0.06-0.53 711-2) BASO x10^3 (test code 0.05 10*3/uL 0.01-0.09 = 704-7) Lab Interpretation Abnormal (test code = 35109-4) [facility]99420[facility]2021-06-29 16:15:23 Test Item Value Reference Range Interpretation Comments NA (test code = 137 mmol/L 135-145 8439496755) K (test code = 4.6 mmol/L 3.5-5.0 4076075208) CL (test code = 101 mmol/L 98-108 4633834193) CO2 TOTAL (test code 25 mmol/L 23-31 = 1455596308) AGAP (test code = 2-16 5904943054) BUN (test code = 22 mg/dL 7-23 5987903111) GLUCOSE (test code = 107 mg/dL 70-110 6215349308) CREATININE (test code 0.89 mg/dL 0.60-1.25 = 1433582000) TOTAL BILI (test code 0.5 mg/dL 0.1-1.1 = 0433670876) CALCIUM (test code = 10.4 mg/dL 8.6-10.6 3290754661) T PROTEIN (test code 7.5 g/dL 6.3-8.2 = 0014688024) ALBUMIN (test code = 4.5 g/dL 3.5-5.0 8783802197) ALK PHOS (test code = 71 U/L 34-122 8070889627) ALTv (test code = 20 U/L 5-50 2-6) AST(SGOT) (test code 34 U/L 13-40 = 2649057044) eGFR (test code = mL/min/1.73m2 4168131989) DENISE (test code = DENISE) Association of Glomerular Filtration Rate (GFR) and Staging of Kidney Disease* + + +- +| GFR (mL/min/1.73 m2) ?| With Kidney Damage ?| ?Without Kidney Damage+ ------+ ----+ ------+| ?>90 ?| ?Stage one ?| ? Normal ?+ -+ + -+| ?60-89 ?| ?Stage two ?| ? Decreased GFR ? + + +- +| ?30-59 ?| ?Stage three ?| ? Stage three ? + + +- +| ?15-29 ?| ?Stage four ? | ? Stage four ?+ -+ + -+| ?<15 (or dialysis) ? ?| ?Stage five ? | ? Stage five ?+ -+ + -+ *Each stage assumes the associated GFR level [...] or urine or abnormalities in imaging tests). [facility] WITH [id number] 16:02:18 Test Item Value Reference Range Interpretation Comments WBC (test code = See_Comment H [Automated 6690-2) message] The system which generated this result [...] RDW-SD (test code = 50.6 fL 38.5-51.6 10119-1) RDW-CV (test code = 14.5 % 12.1-15.4 788-0) PLT (test code = See_Comment [Automated 777-3) message] The system which generated this result transmit precious reference range : 150 - 328 10*3/ ?L. The reference range was not u sed to interpret th is result as normal/abnormal . MPV (test code = 9.3 fL 9.8-13.0 L 48872-1) NRBC/100 WBC (test See_Comment [Automat ed code = 2887286471) message] The system which generated this result transmit precious reference range : 0.0 - 10.0 /100 WBCs. The reference range was not used to interpret this result as normal/abnormal . NRBC x10^3 (test code <0.01 See_Comment [Auto mated = 2393201650) message] The system which generated this result transmit precious reference range : 10*3/?L. The reference range was not used to interpret this result as normal/abnormal . GRAN MAT (NEUT) % 82.5 % (test code = 770-8) IMM GRAN % (test code 0.90 % = 9109889677) LYMPH % (test code = 9.0 % 736-9) MONO % (test code = 7.1 % 5905-5) EOS % (test code = 0.1 % 713-8) BASO % (test code = 0.4 % 706-2) GRAN MAT x10^3(ANC) 10.32 10*3/uL 1.99-6.95 H (test code = 5325884656) IMM GRAN x10^3 (test 0.11 10*3/uL 0.00-0.06 H code = 4995683292) LYMPH x10^3 (test code 1.12 10*3/uL 1.09-3.23 = 731-0) MONO x10^3 (test code 0.89 10*3/uL 0.36-1.02 = 742-7) EOS x10^3 (test code = <0.03 0.06-0.53 L 711-2) BASO x10^3 (test code 0.05 10*3/uL 0.01-0.09 = 704-7) Lab Interpretation Abnormal (test code = 02727-4) [facility]"
[2022-09-26 14:01] LABS: Absolute Lymphocytes (CBC) 1.2 K/uL (0.7-4.9); Hematocrit 39.2 % (39.6-49.0); Lymphocytes % 17.4 % (15.3-44.8); MCV 98.8 fL (80-100); MPV 6.6 fL (7.6-11.3); Platelets 262 thou/uL (152-406); RBC Red Blood Cell Count 3.97 M/uL (4.33-5.43)
[2022-09-26 14:20] LABS: Albumin 3.4 g/dL (3.4-5.0); Bilirubin Direct 0.1 mg/dL (0-0.2); Bilirubin Indirect, Calculated 0.2 mg/dL (0.2-0.8); Bilirubin Total 0.3 mg/dL (0.2-1.0); Magnesium 2.2 mg/dL (1.6-2.4); Potassium 3.7 mEq/L (3.5-5.1); Protein, Total 6.8 g/dL (6.4-8.2); Troponin High Sensitivity 5.7 pg/mL (<58.9)
--- NOTE | 2022-09-26 14:27 | RAD REPORT ---
EXAM DESCRIPTION: RAD - Chest Single View - 09/26/2022 2:07 pm CLINICAL HISTORY: CHEST PAIN Chest pain. COMPARISON: Chest Single View dated 07/07/2021; Chest Single View dated 07/04/2021; Chest Pa And Lat (2 Views) dated 06/22/2020; Chest Pa And Lat (2 Views) dated 08/05/2015 FINDINGS: Portable technique limits examination quality. The lungs are diffusely emphysematous. The heart is normal in size. No displaced fractures. IMPRESSION: Prominent diffuse COPD. The USPSTF recommends annual screening for lung cancer with low-dose CT (LDCT) in adults aged 50 to 80 years who have a 20 pack-year smoking history and currently smoke or have quit within the past 15 years.
--- NOTE | 2022-09-26 15:00 | RAD REPORT ---
EXAM DESCRIPTION: CT - Chest For Pe Angio - 09/26/2022 2:42 pm CLINICAL HISTORY: Chest pain. CHEST PAIN COMPARISON: Ct Low Dose Chest Screening dated 06/15/2017 TECHNIQUE: CT angiogram of the pulmonary arteries was performed with MIP. All CT scans are performed using dose optimization technique as appropriate and may include automated exposure control or mA/KV adjustment according to patient size. FINDINGS: No evidence of pulmonary thromboembolism. No acute aortic finding demonstrated. Severe COPD noted. Irregular areas of spiculated nodularity are seen posterior left apex the largest measuring 25 mm. These are new since 2018 study. No significant pericardial or pleural fluid. No concerning bony finding. IMPRESSION: No evidence of pulmonary thromboembolism. Severe COPD. Irregular spiculated nodularity posterior left apex measure up to 25 mm. Consider followup nonemergen t PET-CT imaging to evaluate for metabolic activity.
--- NOTE | 2022-09-26 15:16 | ER ---
Nurse's Notes [facility] [place], [place] [facility] Name: Arben Young Age: 81 yrs Sex: Male : 1940 Arrival Date: 09/26/2022 Time: 13:08 Bed 5 Private MD: Diagnosis: Costochondritis Presentation: 09/26 13:10 Chief complaint: Patient states: "I am having pain between my ribs on the right side aa5 and now it's radiating to the back". pt also reports baseline SOB. Symptoms began 3-4 days ago. 13:10 Coronavirus screen: At this time, the client does not indicate any symptoms associated aa5 with coronavirus-19. Ebola Screen: Patient denies travel to an Ebola-affected area in the 21 days before illness onset. Initial Sepsis Screen: Does the patient meet any 2 criteria? No. Patient's initial sepsis screen is negative. Does the patient have a suspected source of infection? No. Patient's initial sepsis screen is negative. Risk Assessment: Do you want to hurt yourself or someone else? Patient reports no desire to harm self or others. Onset of symptoms was September 2022. 13:10 Acuity: CHAS 3 aa5 13:10 Method Of Arrival: Wheelchair aa5 Historical: - Allergies: 13:10 No Known Allergies; aa5 - Home Meds: 13:10 Prednisone Oral [Active]; aa5 - PMHx: 15:28 Hypothyroidism; me1 - PSHx: 13:10 heart cath; aa5 - Immunization history:: Adult Immunizations unknown. - Social history:: Smoking status: Patient reports the use of cigarette tobacco products, 1 1/2 packs . Screenin:31 [facility] ED Fall Risk Assessment (Adult) Score/Fall Risk Level 0 - 2 = Low Risk. Abuse me1 screen: Denies threats or abuse. Abuse screen: Denies threats or abuse. Nutritional screening: No deficits noted. Tuberculosis screening: No symptoms or risk factors identified. Assessment: 13:31 General: Appears uncomfortable, well groomed, well developed, Behavior is calm, me1 cooperative, appropriate for age, Reports pain to right chest since Sunday that started radiating to right upper back last night. Denies fever, feeling ill, fatigue, chills. Pain: Complains of pain in right chest Pain radiates to right upper back Pain currently is 0 out of 10 on a pain scale. at worst was 8 out of 10 on a pain scale. Quality of pain is described as sharp, Pain began 2-3 days ago. Neuro: Level of Consciousness is awake, alert, obeys commands, Oriented to person, place, time, situation, Appropriate for age. Cardiovascular: Capillary refill < 3 seconds Patient's skin is warm and dry. Respiratory: Airway is patent Respiratory effort is even, unlabored, Respiratory pattern is regular, symmetrical. GI: Patient currently denies diarrhea, nausea, vomiting. Vital Signs: 13:10 BP 117 / 72; Pulse 89; Resp 18 S; Temp 98.6(TE); Pulse Ox 98% on R/A; aa5 13:37 BP 126 / 76; Pulse 71; Resp 17; Pulse Ox 97% on R/A; me1 14:58 BP 132 / 65; Pulse 59; Resp 16; Pulse Ox 100% on R/A; Pain 0/10; me1 14:58 Pain Scale: Adult me1 ED Course: 13:09 Patient arrived in ED. aa5 13:10 Rachel Young PA-C is PHCP. sb4 13:10 Srinath Torres DO is Attending Physician. sb4 13:10 Arm band placed on. aa5 13:15 Triage completed. aa5 13:31 Radha Allan, CONNIE is Primary Nurse. me1 13:31 Fall risk band placed. Bed in low position. Call light in reach. Side rails up X2. me1 Provided Education on: POC. Verbalized understanding.. Client placed on continuous cardiac and pulse oximetry monitoring. NIBP monitoring applied. nuclear monitoring technician on. 13:31 No provider procedures requiring assistance completed. Patient maintains SpO2 me1 saturation greater than 95% on room air. 13:51 Inserted saline lock: 22 gauge in right antecubital area, using aseptic technique. me1 14:09 XRAY Chest (1 view) In Process Unspecified. EDMS 14:44 Chest For PE Angio CT In Process Unspecified. EDMS 15:28 IV discontinued, intact, bleeding controlled, No redness/swelling at site. Pressure me1 dressing applied. Administered Medications: No medications were administered Medication: 13:31 VIS not applicable for this client. me1 Outcome: 15:15 Discharge ordered by . sb4 15:34 Condition: stable me1 15:34 Discharge instructions given to patient, Instructed on discharge instructions, follow up and referral plans. medication usage, Demonstrated understanding of instructions, follow-up care, medications, Prescriptions given X 1. 15:35 Patient left the ED. me1 Signatures: Dispatcher [employer] Nellie Oro RN RN aa5 Rachel Young, PASergioC PAAron sb4 Radha Allan RN RN me1 Corrections: (The following items were deleted from the chart) 15:29 13:10 PMHx: None; aa5 me1
--- NOTE | 2022-09-26 15:16 | EDPHYS ---
Physician Documentation [facility] Name: Arben Young Age: 81 yrs Sex: Male : 1940 Arrival Date: 09/26/2022 Time: 13:08 Bed 5 Private MD: ED Physician Srinath Torres HPI: 09/26 13:41 This 81 yrs old Male presents to ER via Wheelchair with complaints of Chest Pain. sb4 13:41 Onset: The symptoms/episode began/occurred 5 day(s) ago. Associated signs and symptoms: sb4 The patient has no apparent associated signs or symptoms. Modifying factors: The patient symptoms are alleviated by nothing, the patient symptoms are aggravated by nothing. The patient has not experienced similar symptoms in the past. patient states he started experiencing right sided chest pain, primarily between the ribs, about 5 days ago. he states it is not aggravated by any movement and he does not believe he injured himself. he states now the pain is radiating to his back and right shoulder. he denies any other symptoms- shortness of breath, nausea, vomiting, diaphoresis. he endorses a chronic cough. Historical: - Allergies: 13:10 No Known Allergies; aa5 - Home Meds: 13:10 Prednisone Oral [Active]; aa5 - PMHx: 15:28 Hypothyroidism; me1 - PSHx: 13:10 heart cath; aa5 - Immunization history:: Adult Immunizations unknown. - Social history:: Smoking status: Patient reports the use of cigarette tobacco products, 1 1/2 packs . ROS: 13:41 Constitutional: Negative for fever, chills, and weight loss. sb4 13:41 MS/extremity: Positive for pain, of the right seventh rib and right eighth rib. 13:41 All other systems are negative. Exam: 13:43 Constitutional: This is a well developed, well nourished patient who is awake, alert, sb4 and in no acute distress. Head/Face: Normocephalic, atraumatic. Eyes: Extra-ocular motions intact. Periorbital areas with no swelling, redness, or edema. ENT: Mucous membranes moist. Cardiovascular: Regular rate and rhythm with a normal S1 and S2. Respiratory: Lungs have equal breath sounds bilaterally, clear to auscultation and percussion. No rales, rhonchi or wheezes noted. No increased work of breathing, no retractions or nasal flaring. Abdomen/GI: Soft, non-tender, no distension. Skin: Warm, dry with normal turgor. Normal color with no rashes, no lesions, and no evidence of cellulitis. MS/ Extremity: Pulses equal, no cyanosis. Neurovascular intact. Full, normal range of motion. Neuro: Awake and alert, GCS 15, oriented to person, place, time, and situation. Cranial nerves II-XII grossly intact. Motor strength 5/5 in all extremities. Sensory grossly intact. Cerebellar exam normal. Normal gait. Vital Signs: 13:10 BP 117 / 72; Pulse 89; Resp 18 S; Temp 98.6(TE); Pulse Ox 98% on R/A; aa5 13:37 BP 126 / 76; Pulse 71; Resp 17; Pulse Ox 97% on R/A; me1 14:58 BP 132 / 65; Pulse 59; Resp 16; Pulse Ox 100% on R/A; Pain 0/10; me1 14:58 Pain Scale: Adult me1 MDM: 13:10 Patient medically screened. sb4 13:43 Differential diagnosis: angina, acute WA, muscle strain, costochondritis, pleurisy, sb4 bronchitis, PE. 15:13 Data reviewed: vital signs, nurses notes, lab test result(s), radiologic studies, and sb4 as a result, I will discharge patient. Consideration of Admission/Observation Escalation of care including admission/observation considered. Historians other than the Patient: Daughter/Son: son. Counseling: I had a detailed discussion with the patient and/or guardian regarding the historical points, exam findings, and any diagnostic results supporting the discharge/admit diagnosis, lab results, radiology results, to return to the emergency department if symptoms worsen or persist or if there are any questions or concerns that arise at home. ED course: labs and imaging negative. pain is reproducible on palpation. symptoms most consistent with musculoskeletal pain. patient reports no pain since resting in ED. will dc with anti inflammatories and return precautions. patient and son understand. 09/26 13:19 Order name: Basic Metabolic Panel; Complete Time: 14:26 sb4 09/26 13:19 Order name: CBC with Diff; Complete Time: 14:05 sb4 09/26 13:19 Order name: D-Dimer; Complete Time: 14:05 sb4 09/26 13:19 Order name: LFT's; Complete Time: 14:26 sb4 09/26 13:19 Order name: Magnesium; Complete Time: 14:26 sb4 09/26 13:19 Order name: NT PRO-BNP; Complete Time: 14:26 sb4 09/26 13:19 Order name: PT-INR; Complete Time: 14:05 sb4 09/26 13:19 Order name: Troponin HS; Complete Time: 14:26 sb4 09/26 13:19 Order name: XRAY Chest (1 view); Complete Time: 14:30 sb4 09/26 14:31 Order name: Chest For PE Angio CT; Complete Time: 15:03 sb4 09/26 13:19 Order name: EKG; Complete Time: 13:19 sb4 09/26 13:19 Order name: Cardiac monitoring; Complete Time: 13:31 sb4 09/26 13:19 Order name: EKG - Nurse/Tech; Complete Time: 13: sb4 09/26 13:19 Order name: IV Saline Lock; Complete Time: 14:33 sb4 09/26 13:19 Order name: Labs collected and sent; Complete Time: 14:33 sb4 09/26 13:19 Order name: O2 Per Protocol; Complete Time: 13: sb4 09/26 13:19 Order name: O2 Sat Monitoring; Complete Time: 14:33 sb4 EC:34 Rate is 68 beats/min. Rhythm is regular, Normal Sinus Rhythm with Right bundle branch sb4 block. LA interval is normal at 200 msec. QRS interval is normal at 128 msec. QT interval is normal at 402 msec. No Q waves. T waves are Normal. No ST changes noted. Clinical impression: Abnormal EKG without significant change. Interpreted by me. Reviewed by me. Administered Medications: No medications were administered Disposition: 13:51 Co-signature as Attending Physician, Srinath ENGLISH was immediately available on-site ms3 in the Emergency Department for consultation in the care of the patient. Disposition Summary: 09/26/22 15:15 Discharge Ordered Location: Home sb4 Problem: an ongoing problem sb4 Symptoms: have improved sb4 Condition: Stable sb4 Diagnosis - Costochondritis sb4 Followup: sb4 - With: Private Physician - When: As needed - Reason: Recheck today's complaints, Continuance of care, Re-evaluation by your physician Discharge Instructions: - Discharge Summary Sheet sb4 - Costochondritis, [id number] sb4 - Chest Wall Pain, [id number] sb4 Forms: - Medication Reconciliation Form sb4 - Thank You Letter sb4 - Antibiotic Education sb4 - Prescription Opioid Use sb4 - Patient Portal Instructions sb4 - Leadership Thank You Letter sb4 Prescriptions: - meloxicam 15 mg Oral tablet - take 1 tablet by ORAL route daily; 14 tablet; Refills: 0, Product Selection sb4 Permitted Signatures: Dispatcher [employer] EDNellie Encarnacion, RN RN aa5 Srinath Torres DO DO ms3 Rachel Young PAAron PAAron sb4 Radha Allan, RN RN me1 Corrections: (The following items were deleted from the chart) 15:29 13:10 PMHx: None; aa5 me1
[2022-09-26 15:51] VITALS: TEMP 98.6
[2022-09-26 16:07] VITALS: BP 132/65; O2SAT 100
--- NOTE | 2022-09-27 12:58 | EKG ---
Test Date: 2022-09-26 Test Time: 13:24:03 [place] Man: ALLAN MEASUREMENT RESULTS: Intervals: Rate: 68 WI: 200 QRSD: 128 QT: 402 QTc: 427 Bricelyn: P: 79 WI: 200 QRS: 246 T: 84 INTERPRETIVE STATEMENTS: Normal sinus rhythm Indeterminate axis Right bundle branch block Abnormal ECG Compared to ECG 07/07/2021 19:11:47 Indeterminate axis now present Myocardial infarct finding no longer present Electronically Signed On 09-27-22 12:57:43 CDT by Sly Gore
== END 2022-09-26 15:35 | disposition home or self-care (01) ==
LOC: ER 13:08
DX: M94.0 Chondrocostal junction syndrome [Tietze] (principal); E03.9 Hypothyroidism, unspecified; Z72.0 Tobacco use
CPT/HCPCS: 93005; 85025; 80048; 36415; 83735; 85610; 85379; 80076; 84484; 83880; 71275; 71045; 99285; Q9967